=== PATIENT | male | born 1955 | race Caucasian/White ===

== ENCOUNTER 2024-07-07 13:23 | Outpatient (REF) | payer OTHER, SELFPAY ==
--- NOTE | ~2024-07-07 | XR_ITS ---
EXAMINATION: XR HIP, RIGHT Pelvis x-ray CLINICAL INFORMATION: Right hip pain and pelvic pain. COMPARISON: None available. TECHNIQUE: Two views of the right hip. single view of the pelvis FINDINGS: Right hip and pelvis: No fracture. Alignment is anatomic. Hip joint space is maintained. Soft tissues are unremarkable. Mild spondylosis of the partially visualized lumbar sacral spine. XR/XR hip RT w PEL1V IMPRESSION: 1. Right hip and pelvis: No fracture or dislocation. 2. Mild spondylosis of the partially visualized lumbar sacral spine. Electronically signed by: Mandeep Silva MD 07/07/2024 04:29 PM EDT
== END 2024-07-07 13:24 | disposition home or self-care (01) ==
LOC: HO.XRAY 13:23
PROVIDERS: PCP Internal Medicine Medical Oncology; Visit Provider Internal Medicine Medical Oncology
DX: M25.551 Pain in right hip (principal); R10.2 Pelvic and perineal pain
CPT/HCPCS: 73502

== ENCOUNTER 2024-10-16 15:26 | Outpatient (REF) | payer OTHER, SELFPAY ==
--- NOTE | ~2024-10-16 | XR_ITS ---
EXAMINATION: XR CHEST CLINICAL INFORMATION: COUGH COMPARISON: None available. TECHNIQUE: 2 views of the chest were obtained. FINDINGS: No significant abnormality is noted involving the heart, lungs, mediastinum, bony thorax or soft tissues. XR/XR chest 2V IMPRESSION: Unremarkable examination. Electronically signed by: Renetta Watkins MD 10/16/2024 05:00 PM [facility]
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
--- OUTSIDE RECORDS SUMMARY | 2024-10-18 16:23 | XMS_ITS ---
Author Organization Bruno Ho III, MD Address [address] [facility] [place] [address] Care Team Providers Care Tin Whiz Machine Operator Name Role Phone Bruno Ho Primary Care Provider REASON FOR VISIT Rx sent to wrong Pharmacy Social History Sex Assigned At : Social History Observation Description Sex Assigned At Male Encounters Encounter Location Date Provider Diagnosis Bruno Ho III, MD [address] [place] [address] [place] [address] 10/17/2024 Bruno Ho Plan Of Treatment Next Appt Details Provider Name:Bruno Ho, 11/10/2024 10:00:00 AM, [address] [place] [address] [place], [address], Provider Name:Bruno Ho, 01/02/2025 09:15:00 AM, [address] [place] [address] [place], [address], Progress Notes * Fred LYNN SrDOB:12/1954 (69 yo M)Acc No.[id number]:10/17/2024 Patient:?Fred LYNN :1955???Age:69 Y???Sex:Male Address:[address] [place] [address] * * Date:?
--- OUTSIDE RECORDS SUMMARY | 2024-10-18 16:23 | XMS_ITS ---
Author Organization Bruno Ho III, MD Address [address] [place] [address] [place] [address] Care Team Providers Care Lean Process Deployment Consultant Name Role Phone Bruno Ho Primary Care Provider Medications Medication SIG (Take, Route, Frequency, Duration) Notes Start Date End Date Status guaiFENesin-Codeine 100-10 MG/5ML 10 mL as needed Orally every 4 hrs for 7 days 10/17/2024 10/31/2024 Active Social History Sex Assigned At : Social History Observation Description Sex Assigned At Male Encounters Encounter Location Date Provider Diagnosis Bruno Ho III, MD [address] [place] [address] [place] [address] 10/17/2024 Bruno Ho Plan Of Treatment Medication Medication Name Sig Start Date Stop Date Notes guaiFENesin-Codeine 100-10 MG/5ML 10 mL as needed Orally every 4 hrs for 7 days 10/17/2024 10/31/2024 Next Appt Details Provider Name:Bruno Ho, 11/10/2024 10:00:00 AM, [address] [place] [address] [place], [address], Provider Name:Bruno Ho, 01/02/2025 09:15:00 AM, [address] [place] [address] [place], [address], Progress Notes * Fred LYNN SrDOB:12/1954 (69 yo M)Acc No.[id number]:10/17/2024 Patient:?Fred LYNN :1955???Age:69 Y???Sex:Male Address:[address] [place] [phone] * Refills? Start guaiFENesin-Codeine Solution, 100-10 MG/5ML, Orally, 420 ML, 10 mL as needed, every 4 hrs, 7 days, Refills=1 * true * Date:? Generated for Dionte canales/Rob/eTransmitting on:?10/18/2024 04:22 PM EST
--- OUTSIDE RECORDS SUMMARY | 2024-10-18 16:23 | XMS_ITS ---
Author Organization Bruno Ho III, MD Address [address] [place] [address] Care Team Providers Care Pharmaceutical Sales Representative Name Role Phone Bruno Ho Primary Care Provider REASON FOR VISIT Needs call back from Social History Sex Assigned At : Social History Observation Description Sex Assigned At Male Encounters Encounter Location Date Provider Diagnosis Bruno Ho III, MD [address] [place] [address] [place] [address] 10/18/2024 Bruno Ho Plan Of Treatment Next Appt Details Provider Name:Bruno Ho, 11/10/2024 10:00:00 AM, [address] [place] [address] [place], [address], Provider Name:Bruno Ho, 01/02/2025 09:15:00 AM, [address] [place] [address] [place], [address], Progress Notes * Fred LYNN SrDOB:12/1954 (69 yo M)Acc No.[id number]:10/18/2024 Patient:?Fred LYNN r :1955???Age:69 Y???Sex:Male Address:[address] [place], [place] [address] [address] * true * Date:? Generated for Printi ng/Faxing/eTransmitting on:?10/18/2024 04:22 PM EST
--- OUTSIDE RECORDS SUMMARY | 2024-10-18 16:23 | XMS_ITS | Continuity of Care Document ---
Author Organization [facility], Telehealth Address [address] [place] [address] Care Team Providers Care Social Sciences Lecturer Name Role Phone KAYLI ERIN Primary Care Provider Assessment No assessment recorded. Plan of Treatment Reminders Order Date Submit Date Provider Last Modified By Organization Details Last Modified Time Details Appointments None recorded. Lab None recorded. Referral None recorded. Procedures None recorded. Surgeries orthopaedi c surgery (SURG) 2023 024 [email or web address] Not available 4 15:24:08 Imaging None recorded. Medication Orders None recorded. Patient TargetsNo targets recorded. Patient InstructionsNo instructions recorded. Reason for Referral None Reported. Procedures Surgical History Date Name Laterality Status Provider Name and Address Organization Details Recorded Time 1 Orthopaedic Surgery completed Erum Montano [facility] 12/11/2021 11:38:28 5 Orthopaedic Surgery completed Adina Peralta [facility] 04/23/2017 12:11:17 2 Orthopaedic Surgery completed Adina [facility] 04/23/2017 12:11:27 Imaging Results None recorded. Procedure Notes None recorded. Medical Equipment None Reported. Allergies Allergen ID Allergen Name Allergen Category Reaction Reaction Severity Criticality Documentation Date Start Date Code Code System Note Provider Name and Address Organization Details Recorded Time 464197 bee pollen environme nt,medica tion Not available Not available Not available 04/23/2017 01056 7 RxNorm Adina del valle [facility] 7 12:10:40 Medications Name Sig Start Date Stop Date Status Note LastModified by Organization Details LastModified Time cyclobenza stephen 10 mg tablet TAKE 1 TABLET BY MOUTH THREE TIMES DAILY FOR 7 DAYS active Not Available Not Available No t Available atorvastat in 40 mg tablet TAKE 1 TABLET BY MOUTH EVERY DAY active Not Available Not Available No t Available ketoconazo le 2 % shampoo USE SHAMPOO NEEDED FOR SEBORRHE IC DREMATIT IS active Not Available Not Available No t Available Depo-Medro l 40 mg/mL suspension for injection Take 2 mg by injectio n route. 01/30 completed Not Available Not Available Not Available azithromyc in 250 mg tablet active Not Available Not Available Not Available hydrocodon e 5 mg-acetami nophen 325 mg tablet TAKE 2 TABLETS BY MOUTH EVERY 6 HOURS NEEDED FOR SEVERE PAIN. NOT TO EXCEED 8 TABLETS DAILY 01/30 completed Not Available Not Available Not Available fluorourac il 5 % topical cream APPLY TWICE DAILY TO AFFECTED SCALY AREAS ON FACE FOR A FEW WEEKS UNTIL RED AND CRUSTED 01/30 completed Not Available Not Available Not Available ciprofloxa dawn 500 mg tablet 04/09 completed Not Available Not Available Not Available sulfametho xazole 800 mg-trimeth oprim 160 mg tablet take 1 tablet by mouth twice a day 04/09 completed Not Available Not Available Not Available Kenalog 40 mg/mL suspension for injection Take 3 mL by injectio n route. 2023 active US Guided Not Available Not Available Not Available tamsulosin 0.4 mg capsule 10/12 completed Not Available Not Available Not Available dexamethas one 2 mg tablet TAKE 1 TABLET BY MOUTH EVERY 12 HOURS FOR 7 DAYS 01/30 completed Not Available Not Available Not Available pantoprazo le 40 mg tablet,del ayed release TAKE 1 TABLET BY MOUTH TWICE DAILY active Not Available Not Available No t Available hyoscyamin e 0.125 mg sublingual tablet 04/09 completed Not Available Not Available Not Available clobetasol 0.05 % topical foam APPLY ONCE TO TWICE DAILY TO SCALP FOR 1-2 WEEKS AT A TIME FOR FLARES. DO NOT USE ON FACE OR SKIN FOLDS active Not Available Not Available No t Available epinephrin e 0.3 mg/0.3 mL injection, auto-injec tor INJECT 1 PEN IN THE MUSCLE ONE TIME DIRECTED active Not Available Not Available No t Available methylpred nisolone 4 mg tablets in a dose pack FOLLOW PACKAGE DIRECTIO NS 01/30 completed Not Available Not Available Not Available fluocinolo ne 0.01 % scalp oil and shower cap APPLY TO SCALP AND LEAVE OVERNIGH T. CAN USE TWICE PER WEEK NEEDED 01/30 completed Not Available Not Available Not Available Vitamin C active Not Available Not Tiffany ilable Not Available GaviLyte-G 236 gram-22.74 gram-6.74 gram-5.86 gram oral solution 02/16 completed Not Available Not Available Not Available Shingrix (PF) 50 mcg/0.5 mL intramuscu lar suspension , kit 04/09 completed Not Available Not Available Not Available Afluria Quad (PF) 60 mcg (15 mcg x 4)/0.5 mL IM syringe inject 0.5 millilit er intramus cularly 04/09 completed Not Available Not Available Not Available Afluria Qd 2018- (36 mos up)(PF)60 mcg (15 mcg x4)/0.5 mL IM syringe inject 0.5 millilit ers intramus cularly 04/09 completed Not Available Not Available Not Available Paxlovid 300 mg (150 mg x 2)-100 mg tablets in a dose pack TK 2 NIRMATRE LVIR TS AND 1 RITONAVI R T TOGETHER PO FOR 5 DAYS 01/30 completed Not Available Not Available Not Available Vitals None Recorded Social History Question Answer Notes LastModified by Organizat ion Details LastModified Time Tobacco Smoking Status Never Smoker Adina del valle [place] - [facility] 04/23/2017 12:11:42 What Is Your Level Of Alcohol Consumption? Moderate Information not available 04/10/2021 Auto Related Injury? No [email or web address] Information not available 04/23/2017 What Is Your Level Of Caffeine Consumption? Occasional Information not available 04/10/2021 Do You Or Have You Ever Used E-cigarettes Or Vape? 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 Yes B/l Shoulders Information not available 04/23/2017 What Was The Date Of Your Most Recent Tobacco Screening? 04/27/2019 Information not available 04/10/2021 Do You Or Have You Ever Used Smokeless Tobacco? Never Used Smokeless Tobacco Information not available 04/10/2021 What Types Of Sporting Activities Do You Participate In? Hockey, Gardening, [employer] Information not available 04/10/2021 Work Related Injury? No Information not available 04/23/2017 Sex: Unknown Functional Status Question Answer Note LastModified by Organization D etails LastModified Time What is your exercise level? Moderate [email or web address] Information not available 04/23/2017 Mental Status None recorded. Family History Relationship Description Onset Age of this Age Resolved Age Notes LastModified by Organization Details LastModified Time Father No current problems or disability [email or web address] Not available 04/23 12:16:02 Mother No current problems or disability [email or web address] Not available 04/23 12:16:02 Medical History Condition Response Blood Clots / Phlebitis N HIV or AIDS N Heart Problems N High Blood Pressure N Depression or Anxiety N Irregular Heartbeat N MRSA N Any Other Significant Medical Issues N Emphysema / Chronic Bronchitis N Reaction to General/Local Anesthesia N Weight Gain / Loss N Hepatitis / Jaundice N Kidney / Bladder Infections N Diabetes N Bleeding Disorder N Hearing Loss N Angina, Heart Failure or Attack N Night Sweats N Seizures / Epilepsy N Osteoarthritis / Rheumatoid arthritis / Other N Cancer N Stroke N Chemical Dependency / Alcoholism N Ulcer / Stomach Bleeding / Indigestion N Visual Loss or Glaucoma N Thyroid Disorder N Psoriasis / Skin Rash N Heart Disease N Pulmonary Embolism N Asthma / Shortness of Breath / Sleep Dice Spotter ea (please specify) N Immunizations Vaccine Type Date Status Note Provider Nam e and Address Organization Details Recorded Time SARS-COV-2 (COVID-19) vaccine, UNSPECIFIED 12/19/2020 completed Erum del valle [facility] 04/10/2021 07:30:48 SARS-COV-2 (COVID-19) vaccine, UNSPECIFIED 11/21/2020 completed Erum del valle [facility] 04/10/2021 07:30:57 Past Encounters Encounter ID Performer Location Encounter Start Date Encounter Closed Date Diagnosis/Indication Diagnosis SNOMED-CT Code Diagnosis ICD10 Code [id number] YONAS JIMÉNEZ MD [address] [address] 10/17/2024 12:11:01 10/17/2024 12:36:51 Spontaneous rupture of extensor tendons 161322784 M66.222 Bursitis o f left shoulder 3149775563 56556 M75.52 Bone spur of left shoulder 9813839113 52863 M25.712 Health Concerns Section Related Observation LastModified by Organization Detai ls LastModified Time None Recorded Concern Status LastModified by Organization Details LastModified Time None Recorded Payers Encounter Date Sequence Insurance Name Policy Number Policy Christiansen Covered Member ID Chrsitiansen Member ID Guarantor Name 10/17/2024 1 [facility] [employer] [facility] (PPO) [id number] Sandra Lynn [id number] Fred Lynn Notes Date Note Type Note Provider Name and Address Organization Details Recorded Time 10/17/2024 text/html Fred comes in today via telehealth. This visit was conducted as a real time interactive TeleHealth audio & visual via [employer]. The patient was identified by name and date of and consented to this TeleHealth visit. The patient was at their home in [place] and I was at my [place] office. Participants included myself and the patient. This was done over the course of 10 minutes including record review. Followup of his shoulder. Continues to have difficulty with the shoulder reaching to the side and the overhead. He has done physical therapy and cortisone shot numerous times. At this point, he wants to move ahead with surgical intervention. His MRI shows bursitis, impingement, partial cuff tear and slight subluxation of the biceps, so the plan will be scope, extensive debridement, subacromial decompression, possible tenodesis. We went over the risks and benefits of surgery, we will scheduled in near future. This is a 10 minute, [id number] encounter. YONAS JIMÉNEZ MD [address] [place], [address], [facility] 10/18/2024 10:52:03
--- OUTSIDE RECORDS SUMMARY | 2024-10-18 16:23 | XMS_ITS | Data Portability ---
Author Organization [facility] Office Address [address], [address] [place] [address] Care Team Providers Care Ventilated Rib Fitter Name Role Phone ERIN MILAN Primary Care Provider [phone] Assessment Encounter Date Assessment Date Assessment LastModified by Organization Details LastModified Time 06/29/2024 06/29/2024 Fred is a 68-year-old male he has early degenerative changes in his shoulder. He is has short-term relief from cortisone which she wishes to proceed with again today however he is interested in discussing possible surgical intervention debridement for his shoulder. His last MRI was from 2021. We will likely want to repeat this prior to considering surgical intervention. He tolerated his injection well today and I will follow-up with him in 1 month's time to check in on how he did with his injection. We will repeat his MRI and have him follow-up at the end of August to discuss possible surgery with Dr. Strong. After discussion of the risks including, but not limited to infection, localized soreness and swelling, reaction to medications, the patient elected to proceed with a left subacromial and glenohumeral cortisone injection. Confirmed that the patient does not have history of prior adverse reactions, active infections, or relevant allergies. There was no erythema, or warmth, and the skin was clear. The skin was sterilized with alcohol & Betadine. [facility] Ul[facility]ound was used to ensure accuracy of placement of the injection. 1cc of Kenalog and 1cc of Lidocaine was injected into the subacromial space was visualized and confirmed on ultrasound. Direction was turned to the glenohumeral joint. Anesthesia was achieved subcutaneously with 2cc of 2% Lidocaine. [facility] Ultrasound was used to ensure accuracy of placement of the injection. After re-prepping with Betadine, A 22-gauge spinal needle was used inject 2cc of Kenalog and 2cc of Lidocaine under ultrasound guidance into the glenohumeral joint with sterile gel and a sterile probe. Injection was visualized and confirmed to be in the correct location on ultrasound. The injection was completed without complication and Band-Aids were applied. The patient tolerated the procedure well and was instructed to avoid strenuous activity for the next 24-48 hours and use ice, NSAIDs or Tylenol for pain as needed. The patient will call immediately with any signs of infection or allergic reaction. [email or web address] Not available 06/30/2024 11:26:51 08/08/2024 08/08/2024 This visit was conducted as a real time interactive audio/visual telehealth visit conducted via [employer] The patient was identified by name and date of and consented to this telehealth visit. The patient was at their home in [place] and I was at my [place] office. Participants of the telehealth visit included myself and the patient. The patient was last seen for an office visit on 06/29/24 This visit was done over the course of 20 minutes including record review. Unfortunately, only three weeks of relief from his last injection. We will repeat MRI imaging and have him follow-up with Dr. Strong to discuss possible surgical intervention. [email or web address] Not available 08/08/2024 10:45:44 09/05/2024 09/05/2024 After discussion of the risks including, but not limited to infection, localized soreness and swelling, reaction to medications, the patient elected to proceed with a left subacromial and glenohumeral cortisone injection. Confirmed that the patient does not have history of prior adverse reactions, active infections, or relevant allergies. There was no erythema, or warmth, and the skin was clear. The skin was sterilized with alcohol & Betadine. [facility] Ultrasound was used to ensure accuracy of placement of the injection. 1cc of Kenalog and 1cc of Lidocaine was injected into the subacromial space was visualized and confirmed on ultrasound. Direction was turned to the glenohumeral joint. Anesthesia was achieved subcutaneously with 2cc of 2% Lidocaine. [facility] Ultrasound was used to ensure accuracy of placement of the injection. After re-prepping with Betadine, A 22-gauge spinal needle was used inject 2cc of Kenalog and 2cc of Lidocaine under ultrasound guidance into the glenohumeral joint with sterile gel and a sterile probe. Injection was visualized and confirmed to be in the correct location on ultrasound. The injection was completed without complication and Band-Aids were applied. The patient tolerated the procedure well and was instructed to avoid strenuous activity for the next 24-48 hours and use ice, NSAIDs or Tylenol for pain as needed. The patient will call immediately with any signs of infection or allergic reaction. [email or web address] Not available 09/11/2024 10:08:41 Plan of Treatment Reminders Order Date Submit Date Provider Last Modified By Organization Details Last Modified Time Details Appointments None recorded. Lab None recorded. Referral None recorded. Procedures None recorded. Surgeries orthopaedi c surgery (SURG) 2023 [email or web address] Not available 15:24:08 Imaging MRI, shoulder, w/o contrast - Evaluate Rotator Cuff *PAS* Please contact patient and schedule. Thank you 2023 [facility] ([facility]), [address] [place], [address], 09:37:55 Medication Orders Kenalog 40 mg/mL suspension for injection 2023 024 [email or web address] [facility] #[id number], [address] [place], [place], [phone], 10:03:14 Kenalog 40 mg/mL suspension for injection 2023 024 [email or web address] [facility] #[id number], [address], [place], [id number], 08:35:55 Patient TargetsNo targets recorded. Patient InstructionsNo instructions recorded. Reason for Referral None Reported. Results Created Date Observation Date Name Description Value Unit Range Abnormal Flag Note LastModifiedBy Organization Detail LastModifiedTime 08/25/2008/24/2024 MRI, leeroy alston, w/o contr ast [facility] Access ion Number : [id number] Patien t Name: Fred Mera Record Number : [id number] Date of : 1954 Date of Exam: 2023 Referr kamila malin: Alvina Melendez [facility] [address] [place] [address] Exam: MR Should er (C-) CPT 60723 - Left Room Descri ption: [place] Siem Verio 3.0T SHOULD ER MRI LEFT CLINIC AL HISTOR Y: Pain. Rotato r cuff repair with subacr omial decomp ressio n and distal clavic le excisi on 2004 COMPAR OMI: 022 FINDIN GS: Stable postsu rgical change at the AC joint. Stable small subacr omial/ subdel toid bursit is. Subcor acoid bursit is is unchan ged. Supras pinatu s and infras pinatu s tendin opathy is unchan ged The teres minor tendon is intact . Subsca pulari s tendin opathy has increa sed Partia l tearin g and advanc ed tendin opathy within the intra- articu lar portio n of the long head of the biceps tendon has not change d signif icantl y since the previo us exam. IMPRES TEMITOPE: No eviden ce of full-t hickne ss rotato r cuff tear. No change in supras pinatu s and infras pinatu s tendin opathy . Subsca pulari s tendin opathy has increa sed. Partia l tearin g and advanc ed tendin opathy within the long head of the biceps tendon has not change d signif icantl y. Subacr omial/ subdel toid and subcor acoid bursit is have not change d signif icantl y. Electr onical ly Signed By: Cristo Roy MD [email or web address] [facility] ([facility]) [address], [place], [address], 08/25/2024 09:39:54 08/25/20 24 08/24/2024 MRI, leeroy alecia, w/o contr ast No observ ation record ed. [address] [place], [address], 08/25/2024 10:52:30 Result Notes None recorded. Procedures Surgical History Date Name Laterality Status Provider Name and Address Organization Details Recorded Time Orthopaedic Surgery completed Erum Pittscoleen [facility] 12/11/2021 11:38:28 5 Orthopaedic Surgery completed Adina Peralta [facility] 04/23/2017 12:11:17 2 Orthopaedic Surgery completed Adina Peralta [facility] 04/23/2017 12:11:27 Imaging Results Imaging Date Name Status LastModified by Organiz ation Details LastModified Time 08/24/2024 MRI, shoulder, w/o contrast completed [email or web address] [facility] ([facility]) [address] [place], [address], 08/25/2024 09:39:54 08/24/2024 MRI, shoulder, w/o contrast completed [address] [facility] [address] [place], [address], 08/25/2024 10:52:30 Procedure Notes None recorded. Medical Equipment None Reported. Allergies Allergen ID Allergen Name Allergen Category Reaction Reaction Severity Criticality Documentation Date Start Date Code Code System Note Provider Name and Address Organization Details Recorded Time 152502 bee pollen environme nt,medica tion Not available Not available Not available 04/23/2017 63940 7 RxNorm Adnia Peralta [facility] 7 12:10:40 Medications [...] Status Never Smoker Adina del valle MA [facility] 04/23/2017 12:11:42 What Is Your Level Of Alcohol Consumption? Moderate Information not available 04/10/2021 Auto Related Injury? No [email or web address] Information not available 04/23/2017 What Is Your Level Of Caffeine Consumption? Occasional Information not available 04/10/2021 Do You Or Have You Ever Used E-cigarettes Or Vape? 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 Yes B/l Shoulders [email or web address] Information not available 04/23/2017 What Was The Date Of Your Most Recent Tobacco Screening? 04/27/2019 Information not available 04/10/2021 Do You Or Have You Ever Used Smokeless Tobacco? Never Used Smokeless Tobacco Information not available 04/10/2021 What Types Of Sporting Activities Do You Participate In? Hockey, Gardening, Pel[employer] Information not available 04/10/2021 Work Related Injury? No [email or web address] Information not available 04/23/2017 Sex: Unknown Functional Status Question Answer Note LastModified by Organization D etails LastModified Time What is your exercise level? Moderate [email or web address] Information not available 04/23/2017 Mental Status None recorded. Family History Relationship Description Onset Age of this Age Resolved Age Notes LastModified by Organization Details LastModified Time Father No current problems or disability [email or web address] Not available 04/23 12:16:02 Mother No current problems or disability [email or web address] Not available 04/23 12:16:02 Medical History Condition Response Blood Clots / Phlebitis N Heart Problems N HIV or AIDS N Depression or Anxiety N High Blood Pressure N Irregular Heartbeat N MRSA N Emphysema / Chronic Bronchitis N Any Other Significant Medical Issues N Reaction to General/Local Anesthesia N Weight [...] Indigestion N Visual Loss or Glaucoma N Psoriasis / Skin Rash N Thyroid Disorder N Heart Disease N Asthma / Shortness of Breath / Sleep Hair Spring Cutter ea (please specify) N Pulmonary Embolism N Immunizations Vaccine Type Date Status Note Provider Nam e and Address Organization Details Recorded Time SARS-COV-2 (COVID-19) vaccine, UNSPECIFIED 12/19/2020 completed Erum del valle [facility] 04/10/2021 07:30:48 SARS-COV-2 (COVID-19) vaccine, UNSPECIFIED 11/21/2020 completed Erum del valle [facility] 04/10/2021 07:30:57 Past Encounters Encounter ID Performer Location Encounter Start Date Encounter Closed Date Diagnosis/Indication Diagnosis SNOMED-CT Code Diagnosis ICD10 Code [id number] JOANNA CROSS [facility] [address] [place] [address] 1 04/23/2017 11:38:43 04/23/2017 12:39:00 Shoulder pain 29412995 M25.512 [id number] YONAS STRONG MD [facility] [address] [place] [address] 1 02/16/2019 11:06:50 02/16/2019 12:22:07 Bursitis of left shoulder 0350985358 49142 M75.52 Strain of rotator cuff capsule 90589025 S46.012A [id number] YONAS STRONG MD [facility] [address] [place] [address] 1 04/27/2019 11:27:31 04/27/2019 11:50:49 Bursitis of left shoulder 5758861364 60825 M75.52 Osteophyte of bone 54353 88332 16172 M25.712 [id number] YONAS STRONG MD [facility] [address] [place] [address] 1 10/12/2019 10:50:09 10/12/2019 11:21:50 Bursitis of left shoulder 3879606400 58793 M75.52 [id number] JOANNA CROSS [address] [address] 04/10/2021 07:15:17 04/10/2021 08:05:39 Bursitis of left shoulder 2065763989 85898 M75.52 Impingemen t syndrome of left shoulder region 0871014892 85077 M75.42 Pain of le ft shoulder joint 4710489057 0741823 M25.512 [id number] JOANNA CROSS [address] [address] 04/22/2021 07:35:55 04/28/2021 10:49:45 Bursitis of left shoulder 0532783286 91533 M75.52 Pain of le ft shoulder joint 8243320884 8377924 M25.512 [id number] JOANNA CROSS [address] [address] 05/01/2021 12:44:40 05/01/2021 13:40:28 Pain of left shoulder joint 6975605191 2511088 M25.512 [id number] YONAS STRONG MD [facility] [address] [place] [address] 1 12/11/2021 11:19:45 12/11/2021 12:00:57 Adhesive capsulitis of left shoulder 4807734755 81398 M75.02 [id number] YONAS STRONG MD [address] [address] 09/15/2022 16:31:52 09/15/2022 18:10:11 Pain of right shoulder joint 7558175982 6614774 M25.915 [id number] YONAS STRONG MD [address] [address] 10/06/2022 12:02:06 10/06/2022 13:19:21 Osteoarthritis 461942632 M19.012 Adhesive c apsulitis of left shoulder 5512587019 68472 M75.02 [id number] JOANNA CROSS [address] [address] 1 01/31/2024 11:25:03 01/31/2024 15:32:48 Osteoarthritis of joint of left shoulder region 7345033854 66119 M19.012 Bursitis o f left shoulder 9408663864 24827 M75.52 Impingemen t syndrome of left shoulder region 4035758548 04097 M75.42 Pain of le ft shoulder joint 4086730172 1072984 M25.512 Rupture of rotator cuff of left shoulder 9128676080 7992334 M75.967 [id number] JOANNA HUERTAS [address] [address] 06/29/2024 10:51:46 06/29/2024 12:45:37 Partial thickness rotator cuff tear 297763470 M75.102 Osteoarthr itis of joint of left shoulder region 4269386645 02203 M19.012 Biceps tendinitis 274589 007 M75.22 [id number] JOANNA HUERTAS [place] [facility] [address] [address] 08/08/2024 09:46:26 08/08/2024 10:20:38 Biceps tendinitis 987400957 M75.22 Impingemen t syndrome of left shoulder region 8264377615 75515 M75.42 [id number] YONAS STRONG MD [address] [address] 08/31/2024 12:37:35 08/31/2024 13:12:23 Bursitis of left shoulder 0152109034 59807 M75.52 Bone spur of left shoulder 0966511182 66716 M25.712 Rupture of rotator cuff of left shoulder 3153390145 8902181 M75.457 [id number] JOANNA HUERTAS [address] [address] 09/05/2024 10:48:10 09/05/2024 13:10:00 Localized, primary osteoarthritis of the shoulder region 572224003 M19.012 Rupture of rotator cuff of left shoulder 2041779085 2005654 M75.303 [id number] YONAS STRONG MD [facility] [address] [place] [address] 10/17/2024 12:11:01 10/17/2024 12:36:51 Spontaneous rupture of extensor tendons 322512998 M66.222 Bursitis o f left shoulder 7217110347 81162 M75.52 Bone spur of left shoulder 7517365832 14937 M25.712 Health Concerns Section Related Observation LastModified by Organization Detai ls LastModified Time None Recorded Concern Status LastModified by Organization Details LastModified Time None Recorded Advance Directives Directive None Recorded Payers Encounter Date Sequence Insurance Name Policy Number Policy Christiansen Covered Member ID Christiansen Member ID Guarantor Name 06/29/2024 1 [employer] [id number] Sandra Gee Shane [id number] Fred Lynn 08/08/2024 1 [employer] - [employer] INDEMNITY PLAN (PPO) [id number] Sandra S Shane [id number] Fred Shane 08/31/2024 1 [employer] INDEMNITY PLAN (PPO) [id number] Sandra S Shane [id number] Fred Shane 09/05/2024 1 [employer] IN[employer]MNITY PLAN (PPO) [id number] Sandra Gee Shane [id number] Fred Shane 10/17/2024 1 [employer] IN[employer]MNITY [employer]AN (PPO) [id number] Sandra S Shane [id number] Fred Lynn Notes Date Note Type Note Provider Name and Address Organization Details Recorded Time 06/29/2024 text/html Fred is a 68-year-old male that presents today for follow-up for his left shoulder. He last met with Lamar in January who administered a cortisone injection. He was found to have some early degenerative changes. The patient reports good relief from the injection. They apparently did discuss possible surgical intervention however he wanted to hold off until the fall. He is hoping to repeat the cortisone injection to get him through the rest of the summer. Otherwise no changes in his shoulder. Of note the patient does have a prior MRI dated from 2021 JOANNA HUERTAS [address] [facility], [place], [address], [facility] 07/03/2024 11:07:58 08/08/2024 text/html Fred is a 68-year-old male that presents today for follow-up for his left shoulder. I administered a cortisone injection about a month ago. Unfortunately this provided only about 3 weeks of relief. At his last visit we discussed repeating his MRI to consider surgical intervention for his shoulder if the injection was not effective. His prior MRI from 2021 that shows bursitis and some partial tearing of the bicep tendon. JOANNA HUERTAS [address] [place], [address], [facility] 08/14/2024 10:29:58 08/31/2024 text/html Vikas reached via telehealth. This visit was conducted as a real time interactive TeleHealth audio & visual via [employer]. The patient was identified by name and date of and consented to this TeleHealth visit. The patient was at their home in [place] and I was at my [place] office. Participants of the telehealth visit included myself and the patient. This was done over the course of 10 minutes including record review. Followup of his shoulder. He had prior repair of the about 15-20 years ago, had done okay for many years, then had some recurrent discomfort. He had cortisone shot last April. Then the pain got fairly severe about 6 weeks ago. New MRI was obtained. It shows significant bursitis and partial cuff tear. Clinically, he gets up to about 100, but he is pretty uncomfortable. We discussed about options. He would like to try 1 more cortisone shot and then hold time for surgery in November, but does not improve. I think that is reasonable. I will set that up. A 10-minute [id number] encounter. YONAS STRONG MD [address] [place], [address], [facility] 09/01/2024 08:27:14 09/05/2024 text/html Fred is a 69-year-old male who presents today for left shoulder injection. He last met with Dr. Strong on 31 August. He discussed surgical intervention with Dr. Strong at this time. Dr. Strong felt that the patient first should proceed with 1 more an attempt with cortisone prior to considering surgery so he is here for that today. The patient still is interested in proceeding with surgery in November or at least holding a date. JOANNA HUERTAS [address] [place] [address], [phone], [facility] 09/11/2024 10:38:00 10/17/2024 text/html Fred comes in today via telehealth. This visit was conducted as a real time interactive TeleHealth audio & visual via [employer]. The patient was identified by name and date of and consented to this TeleHealth visit. The patient was at their home in [place] and I was at [place] office. Participants included myself and the patient. [...] near future. This is a 10 minute, 24[address] encounter. YONAS STRONG MD [address] [place], [address], [facility] 10/18/2024 10:52:03
--- OUTSIDE RECORDS SUMMARY | 2024-10-18 16:24 | XMS_ITS | Continuity of Care Document ---
Author Organization [facility] [place] Office Address [address] [place] [address] Care Team Providers Care Director Of Medicare Name Role Phone ERIN MILAN Primary Care Provider [phone] Assessment Encounter Date Assessment Date Assessment LastModified by Organization Details LastModified Time 09/05/2024 09/05/2024 After discussion of the risks [...] skin was sterilized with alcohol & Betadine. Excorda Ultrasound was used to ensure accuracy of placement of the injection. 1cc of Kenalog and 1cc of Lidocaine was injected into the subacromial space was visualized and confirmed on ultrasound. Direction was turned to the glenohumeral joint. Anesthesia was achieved subcutaneously with 2cc of 2% Lidocaine. Excorda Ultrasound was used to ensure accuracy of [...] Referral None recorded. Procedures None recorded. Surgeries None recorded. Imaging None recorded. Medication Orders Kenalog 40 mg/mL suspension for injection 2023 024 [id number] [address] [place], [place], [phone], 08:35:55 Patient TargetsNo targets recorded. Patient InstructionsNo instructions recorded. Reason for Referral None Reported. Results Created Date Observation Date Name Description Value Unit Range Abnormal Flag Note LastModifiedBy Organization Detail LastModifiedTime 08/25/2008/24/2024 MRI, leeroy alston, w/o contr ast [facility] Access ion Number : [id number] Vijay flaherty Name: Fred Mera Record Number : [id number] Date of : 1954 Date of Exam: 2023 Referr ing Physic dea: Alvina Melendez [facility] [address] [place] [address] [address] [facility] [place] [address] Exam: MR Should er (C-) CPT 98347 - Left Room Descri ption: [place] Siem Verio 3.0T SHOULD ER MRI LEFT [...] ly Signed By: Cristo Roy MD [email or web address] [facility] ([facility]) [address] [place], [address], 08/25/2024 09:39:54 08/25/20 24 08/24/2024 MRI, leeroy alston, w/o contr ast No observ ation record ed. [email or web address] [facility] [address] [place], [address], 08/25/2024 10:52:30 Result Notes None recorded. Procedures Surgical History Date Name Laterality Status Provider Name and Address Organization Details Recorded Time 1 Orthopaedic Surgery completed Erum Montano [facility] 12/11/2021 11:38:28 5 Orthopaedic Surgery completed Adina Peralta [facility] 04/23/2017 12:11:17 2 Orthopaedic Surgery completed Adina Peralta [facility] 04/23/2017 12:11:27 Imaging Results None recorded. Procedure Notes None recorded. Medical Equipment None Reported. Allergies Allergen ID Allergen Name Allergen Category Reaction Reaction Severity Criticality Documentation Date Start Date Code Code System Note Provider Name and Address Organization Details Recorded Time 852546 bee pollen environme nt,medica tion Not available Not available Not available 04/23/2017 18624 7 RxNorm Adina del valle [facility] 7 12:10:40 Medications [...] Never Smoker Adina del valle [place] - [facility] 04/23/2017 12:11:42 What Is Your Level Of Alcohol Consumption? Moderate Information not available 04/10/2021 Auto Related Injury? No [email or web address] Information not available 04/23/2017 What Is Your Level Of Caffeine Consumption? Occasional Information not available 04/10/2021 Do You Or Have You Ever Used E-cigarettes Or Vape? 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 Yes B/l Shoulders [email or web address] Information not available 04/23/2017 What Was The Date Of Your Most Recent Tobacco Screening? 04/27/2019 Information not available 04/10/2021 Do You Or Have You Ever Used Smokeless Tobacco? Never Used Smokeless Tobacco Information not available 04/10/2021 What Types Of Sporting Activities Do You Participate In? Hockey, Gardening, Peloton Information not available 04/10/2021 Work Related Injury? No [email or web address] Information not available 04/23/2017 Sex: Unknown Functional Status Question Answer Note LastModified by Organization D etails LastModified Time What is your exercise level? Moderate Information not available 04/23/2017 Mental Status None [...] Anxiety N Irregular Heartbeat N MRSA N Emphysema / Chronic Bronchitis N Any Other Significant Medical Issues N Reaction to General/Local Anesthesia N Hepatitis / Jaundice N Weight Gain / Loss N Kidney / Bladder Infections N Diabetes [...] Asthma / Shortness of Breath / Sleep Hammer Heater ea (please specify) N Pulmonary Embolism N Immunizations Vaccine Type Date Status Note Provider Nam e and Address Organization Details Recorded Time SARS-COV-2 (COVID-19) vaccine, UNSPECIFIED 12/19/2020 completed Erum del valle [place] [facility] 04/10/2021 07:30:48 SARS-COV-2 (COVID-19) vaccine, UNSPECIFIED 11/21/2020 arpita del valle [place] [facility] 04/10/2021 07:30:57 Past Encounters Encounter ID Performer Location Encounter Start Date Encounter Closed Date Diagnosis/Indication Diagnosis SNOMED-CT Code Diagnosis ICD10 Code [id number] JOANNA HUERTAS [place] [facility],[address] [address] 08/08/2024 09:46:26 08/08/2024 10:20:38 Biceps tendinitis 530783005 M75.22 Impingemen t syndrome of left shoulder region 5249875889 09544 M75.42 [id number] YONAS STRONG MD [address] [address] 08/31/2024 12:37:35 08/31/2024 13:12:23 Bursitis of left shoulder 3208706359 54893 M75.52 Bone spur of left shoulder 1002123121 51487 M25.712 Rupture of rotator cuff of left shoulder 1198349738 2865197 M75.936 [id number] JOANNA HUERTAS [facility] [address] [place] [address] 09/05/2024 10:48:10 09/05/2024 13:10:00 Localized, primary osteoarthritis of the shoulder region 343314988 M19.012 Rupture of rotator cuff of left shoulder 0820807257 0982015 M75.112 Health Concerns Section Related Observation LastModified by Organization Detai ls LastModified Time None Recorded Concern Status LastModified by Organization Details LastModified Time None Recorded Payers Encounter Date Sequence Insurance Name Policy Number Policy Christiansen Covered Member ID Christiansen Member ID Guarantor Name 09/05/2024 1 [facility] INDEMNITY PLAN (PPO) [id number] 7 Sandra Gerard Shane [id number] Fred Lynn Notes Date Note Type Note Provider Name and Address Organization Details Recorded Time 09/05/2024 text/html Fred is a 69-year-old male [...] at least holding a date. JOANNA HUERTAS [address] [place] [address], [phone], [facility] 09/11/2024 10:38:00
--- OUTSIDE RECORDS SUMMARY | 2024-10-18 16:24 | XMS_ITS | Continuity of Care Document ---
Author Organization [facility], Telehealth Address [address] [place] [address] Care Team Providers Care Dry Wall Sprayer Name Role Phone ERIN MILAN Primary Care Provider Assessment No assessment recorded. Plan of Treatment Reminders Order Date Submit Date Provider Last Modified By Organization Details Last Modified Time Details Appointments None record ed. Lab None record ed. Referral None record ed. Procedures None record ed. Surgeries None record ed. Imaging None record ed. Medication Orders None record ed. Patient TargetsNo targets recorded. Patient InstructionsNo instructions recorded. Reason for Referral None Reported. Results Created Date Observation Date Name Description Value Unit Range Abnormal Flag Note LastModifiedBy Organization Detail LastModifiedTime 08/25/20 24 08/24/2024 MRI, leeroy alston, w/o contr ast [facility] Access ion Number : [id number] Vijay flaherty Name: Fred Mera Medica l Record Number : [id number] Date of : 1954 Date of Exam: 2023 Referr ing Physic dea: Al Alvina [address] [place] [address] Exam: MR Should er (C-) CPT 30436 - Left Room Descri ption: [place] Siem Verio 3.0T SHOULD ER MRI LEFT [...] ly Signed By: Cristo Roy MD [email or web address] [facility] ([facility]) [address] [place], [address], 08/25/2024 09:39:54 08/25/20 24 08/24/2024 MRI, leeroy alecia, w/o contr ast No observ ation record ed. [email or web address] [facility] [address] [place], [address], 08/25/2024 10:52:30 Result Notes None recorded. Procedures Surgical History Date Name Laterality Status Provider Name and Address Organization Details Recorded Time 1 Orthopaedic Surgery completed Erum Montano [facility] 12/11/2021 11:38:28 5 Orthopaedic Surgery completed [facility] 04/23/2017 12:11:17 2 Orthopaedic Surgery completed [facility] 04/23/2017 12:11:27 Imaging Results None recorded. Procedure Notes None recorded. Medical Equipment None Reported. Allergies Allergen ID Allergen Name Allergen Category Reaction Reaction Severity Criticality Documentation Date Start Date Code Code System Note Provider Name and Address Organization Details Recorded Time 532707 bee pollen environme nt,medica tion Not available Not available Not available 04/23/2017 46890 7 RxNorm Adina Fabian [facility] 7 12:10:40 Medications [...] Never Smoker Adina del valle [place] - [facility] 04/23/2017 12:11:42 What Is Your Level Of Alcohol Consumption? Moderate Information not available 04/10/2021 Auto Related Injury? No [email or web address] Information not available 04/23/2017 What Is Your Level Of Caffeine Consumption? Occasional Information not available 04/10/2021 Do You Or Have You Ever Used E-cigarettes Or Vape? 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 Yes B/l Shoulders [email or web address] Information not available 04/23/2017 What Was The Date Of Your Most Recent Tobacco Screening? 04/27/2019 Information not available 04/10/2021 Do You Or Have You Ever Used Smokeless Tobacco? Never Used Smokeless Tobacco Information not available 04/10/2021 What Types Of Sporting Activities Do You Participate In? Hockey, Gardening, Peloton Information not available 04/10/2021 Work Related Injury? No [email or web address] Information not available 04/23/2017 Sex: Unknown Functional [...] available 04/23 12:16:02 Medical History Condition Response HIV or AIDS N High Blood Pressure N Irregular Heartbeat N MRSA N Any Other Significant Medical Issues N Weight Gain / Loss N Hearing Loss N Angina, Heart Failure or Attack N Night Sweats N Seizures / Epilepsy N Osteoarthritis / Rheumatoid arthritis / Other N Cancer N Stroke N Ulcer / Stomach Bleeding / Indigestion N Visual Loss or Glaucoma N Blood Clots / Phlebitis N Heart Problems N Depression or Anxiety N Emphysema / Chronic Bronchitis N Reaction to General/Local Anesthesia N Hepatitis / Jaundice N Kidney / Bladder Infections N Diabetes N Bleeding Disorder N Chemical Dependency / Alcoholism N Psoriasis / Skin Rash N Thyroid Disorder N Heart Disease N Asthma / Shortness of Breath / Sleep Merchandising Director ea (please specify) N Pulmonary Embolism N Immunizations Vaccine Type Date Status Note Provider Nam e and Address Organization Details Recorded Time SARS-COV-2 (COVID-19) vaccine, UNSPECIFIED 12/19/2020 arpita Montano [facility] 04/10/2021 07:30:48 SARS-COV-2 (COVID-19) vaccine, UNSPECIFIED 11/21/2020 arpita Danielson [facility] 04/10/2021 07:30:57 Past Encounters Encounter ID Performer Location Encounter Start Date Encounter Closed Date Diagnosis/Indication Diagnosis SNOMED-CT Code Diagnosis ICD10 Code [id number] JOANNA HUERTAS [facility] [address] [place] [address] 08/08/2024 09:46:26 08/08/2024 10:20:38 Biceps tendinitis 200470176 M75.22 Impingemen t syndrome of left shoulder region 4661295939 56467 M75.42 [id number] YONAS JIMÉNEZ MD [facility] [address] [place] [address] 08/31/2024 12:37:35 08/31/2024 13:12:23 Bursitis of left shoulder 0297851917 99271 M75.52 Bone spur of left shoulder 3084472315 04578 M25.712 Rupture of rotator cuff of left shoulder 0861259019 1932297 M75.102 Health Concerns Section Related Observation LastModified by Organization Detai ls LastModified Time None Recorded Concern Status LastModified by Organization Details LastModified Time None Recorded Payers Encounter Date Sequence Insurance Name Policy Number Policy Christiansen Covered Member ID Christiansen Member ID Guarantor Name 08/31/[address] [facility] INDEMNITY PLAN (PPO) [id number] 7 Sandra Lynn [id number] Fred Lynn Notes Date Note Type Note Provider Name and Address Organization Details Recorded Time 08/31/2024 text/html Vikas reached via telehealth. This visit was conducted as a real time interactive TeleHealth audio & visual via Lala. The patient was identified by name and date of and consented to this TeleHealth visit. The patient was at their home in [place] and I was at my [place] office. Participants of the telehealth visit included [...] I will set that up. A 10-minute [id number] encounter. YONAS JIMÉNEZ MD [address] [place] [address], [phone], [facility] 09/01/2024 08:27:14
== END 2024-10-16 15:27 | disposition home or self-care (01) ==
LOC: HO.XRAY 15:26
PROVIDERS: PCP Internal Medicine Medical Oncology; Visit Provider Internal Medicine Medical Oncology
DX: R05.9 Cough, unspecified (principal)
CPT/HCPCS: 71046

== ENCOUNTER → 2025-01-17 09:54 | Outpatient (REF) | payer OTHER, SELFPAY ==
--- NOTE | 2025-01-17 10:00 | ECG_ITS ---
Test Reason : PREOP Blood Pressure : */* mmHG Vent. Rate : 58 BPM Atrial Rate : 58 BPM P-R Int : 142 ms QRS Dur : 98 ms QT Int : 410 ms P-R-T Axes : 42 21 47 degrees QTcB Int : 402 ms Sinus bradycardia Otherwise normal ECG When compared with ECG of 19-Aug-2005 11:10, No significant change was found Referred By: Bruno Ho Electronically Signed By: RAAD CONDE
[2025-01-17 10:19] LABS: MANUAL DIFF FLAG NO
--- OUTSIDE RECORDS SUMMARY | 2025-01-17 11:09 | XMS_ITS ---
Author Organization Bruno Ho III, MD Address [address] [place] [address] Care Team Providers Care Tyre Builder Name Role Phone Bruno Ho Primary Care Provider [phone] Allergies Allergen (clinical drug ingredient) Drug/Non Drug [...] 01:37:43 PM > Referral and Progress note faxed Referral Priority Routine REASON FOR VISIT Annual Exam, cough, dizzy, [...] Status W/U Status Risk Notes Problem Neutropenia ([id number]) Neutropenia, unspecified (D70.9) Active confirmed A CBC has been ordered to be done within the next week. He has had no recent infections. Problem [id number] Primary osteoarthritis , right shoulder (M19.011) Active confirmed He is scheduled to have surgery on his right shoulder in [place] in January 2025. Vital Signs Temperature 97.6 degrees Fahrenheit 11/10/19 25 Blood pressure systolic 134 mm Hg 11/10/19 25 Blood pressure diastolic 70 mm Hg 025 Heart Rate 69, 70.0 /min 11/10/2024 Height 67 in 11/10/2024 Weight 154 lbs 11/10/2024 BMI 24.12 kg/m2 11/10/2024 Oximetry 99.0 % 11/10/2024 Encounters Encounter Location Date Provider Diagnosis Bruno Ho III, MD [address] [place] [address] [place] [address] 11/10/2024 Bruno Ho Erectile dysfunction N52.9 ; [...] The esophageal reflux is well controlled with bqpp-ovi-snoiehf medications. 11/10/2024 Peyronie's disease (ICD-10 - N48.6) This is being treated by the urologist. He says that has improved. 11/10/2024 Neutropenia, unspecified (ICD-10 - D70.9) A CBC has been ordered to be done within the next week. He has had no recent infections. 11/10/2024 Primary osteoarthritis, right shoulder (ICD-10 - M19.011) He is scheduled to have surgery on his right shoulder in [place] in January 2025. Plan Of Treatment Medication [...] surgery, Reason: Pre-op, Pre-operative check-up Provider Name:Bruno Ho, 11/13/2025 11:00:00 AM, [address] [place] [address] [address] [address], [place], [address], Progress Notes * Fred LYNN SrDOB:12/1954 (69 yo M)Acc No.[id number]:11/10/2024 Progress Notes Patient:?Fred LYNN Provider:?Bruno Ho MD :1955???Age:69 Y???Sex:Male Bryan e:11/10/2024 Address:[address] [place], [place] [id number] Subjective: * Chief Complaints: * ???Annual ExamCoughBrittanitaye quinterosuhailey, yelling, fighting in sleepShoulder 01/24 bone and joint, tear and scar left dshoulder, no more shots got rx for * HPI: ???Depression Screening:?PHQ-9?Little interest or pleasure in doing things?Nearly every day ?Feeling down, depressed, or hopeless?Nearly every day ?Trouble falling or staying asleep, or sleeping too much?Several days ?Feeling tired or having little energy?More than half the days ?Poor appetite or overeating?Nearly every day ?Feeling bad about yourself or that you are a failure, or have let yourself or your family down?Nearly every day ?Trouble concentrating on things, such as reading the newspaper or watching television?Nearly every day ?Moving or speaking so slowly that other people could have noticed; or the opposite, being so fidgety or restless that you have been moving around a lot more than usual?Nearly every day ?Thoughts that you would be better off or of hurting yourself in some way?Nearly every day (Consider Suicide Assessment Risk) ?Total Score?24 ?Interpretation?Severe Depression ???COVID-19 Screening:?Questions?Have you had any new onset fever, chills, cough, congestion, sore throat, shortness of breath, muscle aches??No ???SDOH Questions:?SDOH Questions?In the past year have you been worried about losing your housing??No ?In the past year have you or any family members you live with been unable to get any of the following when it was really needed? Check all that apply:?None ???:? The patient, a 69-year-old male, presented with [...] scheduled for the 24 of January. * ROS:?General/Constitutional:?pain?Sore from coughing, chronic right shoulder pain, otherwise only normal aches and pains.?Chills?denies.?Fatigue?admits.?Fever?denies.?Allergy/Immunology:?Admits?Cough,?is non-productive.?ENT:?Decreased hearing?denies.?Endocrine:?Admits?Dizziness.?Respiratory:?Cough?non-productive.?Cardiovascular:?Chest pain with exertion?denies.?Dyspnea on exertion?denies.?Shortness of breath?denies.?Gastrointestinal:?Constipation?occasional.?Decreased appetite?denies.?Diarrhea?denies.?Heartburn?denies.?Nausea?denies.?Rectal bleeding?denies.?Vomiting?denies.?Hematology:?bruising?denies.?petechiae?denies.?Swollen glands?none have been noted.?Genitourinary:?Frequent urination?once a night.?Musculoskeletal:?Muscle aches?denies.?Painful joints?denies.?Sciatica?denies.?Weakness?denies.?Skin:?Itching?denies.?Rash?denies.?Skin lesion(s)?denies.?Neurologic:?Difficulty speaking?denies.?Dizziness?denies.?Headache?denies.?Low back pain?denies.?Psychiatric:?Depressed mood?denies.? * Medical History:? * Surgical History:?rotator cu ff tear repair - left [id number] discectomy with anterior fusion houlder surgery scheduled for 24 of january. 01/2025 * Hospitalization/Major Diagno stic Procedure:?Chest pain 11/2020No history * Family History:?Father: aileen kothari 84 yrs, hypertension, diagnosed with HTN.?Mother: alive 80 yrs.?Siblings: alive.?Maternal Grand Mother: 70 yrs, type II diabetes, diagnosed with DM.?Spouse: alive.?3 brother(s) , 2 sister(s) . 1 son(s) - healthy. .? One sibling has been diagnosed with hypertension. * Social History:?Tobacco Use:?Tobacco Use/Smoking?Patient is a?former smoker ?How long has it been since you last smoked??> 10 years ?Additional Findings: Tobacco Non-User?Ex-cigarette smoker ?Tobacco Control (Standard)?Tobacco use:?Former smoker ?How long has it been since you last smoked??Greater than 10 years ?Additional Findings: Tobacco non-user?Ex-cigarette smoker ???Drugs/Alcohol:?Drugs?Have you used drugs other than those for medical reasons in the past 12 months??No ???Drug/Alcohol:?AUDIT-C (Standard)?Did you have a drink containing alcohol in the past year??Yes ?How often did you have six or more drinks on one occasion in the past year??4 or more times a week (4 points) ?How many drinks did you have on a typical day when you were drinking in the past year??1 or 2 drinks (0 point) ?How often did you have a drink containing alcohol in the past year??Never (0 point) ?Points?4 ?Interpretation?Positive ???He was born in [place]. 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 He is now with the [employer] department. * Medications:?TakingEpiPen 2- Shiv 0.3 MG/0.3ML Solution Auto-injector as directed Injection [...] reviewed and reconciled with the patient * Allergies:?Bee Stingno[Aller gies Verified] Objective: * Vitals:?Ht: 67, Wt:154, BMI: 24.12, BP:134/70, HR: 69,70.0, Temp:97.6, Oxygen sat %:99.0, Ht-cm: 170.18, Wt-k.85. * ???Past Orders: ???Imaging:XR chest 2V (Orde r Date - 10/16/2024) (Performed Date - 10/16/2024) [...] Negative Menstrating NR N/A NA * Examination: ???General Examination: ?GENERAL APPEARANCE:?pleasant, well nourished, well developed, in no acute distress, calm and relaxed, man.?HEAD:?atraumatic, normocephalic.?EYES:?eomi, perrla, anicteric, conjugate.?EARS:?normal.?NOSE:?septum intact.?ORAL CAVITY:?normal, unremarkable.?NECK/THYROID:?no jugular venous distention, no carotid bruit, thyroid normal.?LYMPH NODES:?no enlarged lymph nodes,spleen normal.?SKIN:?no suspicious lesions, anicteric.?HEART:?no clicks, gallops, murmurs, or rubs, regular rhythm, S1, S2 normal, no s3, or vascular bruits.?LUNGS:?clear to auscultation, no wheezes, rales, rhonchi, good air movement.?BREASTS:??no masses palpable bilaterally.?ABDOMEN:?bowel sounds normal, no ascites, no organomegaly, no mass.?RECTAL EXAM:?not examined.?MUSCULOSKELETAL:?extremities unremarkable, no clubbing, cyanosis or edema, [place] to elevation both shoulders, Right worse than left.?PERIPHERAL PULSES:?normal.?NEUROLOGIC:?alert and oriented, cranial nerves 2-12 grossly intact, deep tendon reflexes 2+ symmetrical, motor strength normal upper and lower extremities, sensory exam intact.?PSYCH:?alert, oriented.? : ???Eardrums:Normal, Prostate: Normal, Rectum: Normal, Shoulder: Small tear and a lot of scar tissue. ??? Assessment: * Assessment: 1.?Benign prostatic hyperpla jolanta with lower urinary tract symptoms - N40.1 (Primary)???Notes :His prostatism is stable with nocturia once a night. No change in his regimen was needed at this time. We discussed lifestyle modification as a means to control nocturia.???2.?Erectile dysfunction - N52.9???Notes :I have refilled his tadalafil.? He reports the perone's disease is stable.???3.?Former smoker - Z87.891???Notes :He is motivated not to smoke. We discussed strategies for maintenance of abstinence in times of stress.???4.?Hyperlipidemia - E78.5???Notes :A fasting lipid profile is pending. We will discuss results over the telephone when it is available.???5.?Gastro-esophageal reflux disease without esophagitis - K21.9???Notes :The esophageal reflux is well controlled with aord-jls-kzlomxj medications.???6.?Peyronie's disease - N48.6???Notes :This is being treated by the urologist. He says that has improved.???7.?Neutropenia, unspecified - D70.9???Notes :A CBC has been ordered to be done within the next week.? He has had no recent infections.???8.?Primary osteoarthritis, right shoulder - M19.011???Notes :He is scheduled to have surgery on his right shoulder in [place] in January 2025.??? Plan: * Treatment: 2.?Hyperlipidemia?LAB: PROFILE, FASTING (COMPREHENSIVE METABOLIC) ?LAB: TSH (THYROID STIMULATING HORMONE) ?LAB: CBC WITH AUTO DIFF ?LAB: Magnesium ?LAB: Lipid Panel ?LAB: PSA Free and Total ?LAB: Free T4 (Free Thyroxine) 3.?Others? Continue Atorvastatin Calcium Tablet, 40 MG, TAKE 1 TABLET BY MOUTH EVERY DAY;?Continue EpiPen 2-Shiv Solution Auto-injector, 0.3 MG/0.3ML, as directed, Injection, inject as needed for allergic reaction;?Continue Pantoprazole Sodium Tablet Delayed Release, 40 MG, TAKE 1 TABLET BY MOUTH TWICE DAILY;?Continue Cyclobenzaprine HCl Tablet, 10 MG, 1 tablet, Orally, three times a day;?Continue methylPREDNISolone Tablet Therapy Pack, 4 MG, Oral;?Start Tadalafil Tablet, 20 MG, 1 tablet as needed, Orally, Once a day, 12 days, 12 Tablet, Refills 11.? Referral To:EVARISTO GILLIS??Pulmonary Diseases ?Reason:Consult and Treat Needs Sleep Study Excessive Snoring * Labs:? * ?Lab: URINE DIP STICK (C ollection Date & Time - 11/10/2024) ? Value Reference Range ?SG 1.005 1.005 - 1.025 * ?pH 7.0 5.0 - 9.0 * ?ATIF Negative Negative - * ?NIT Negative Negative - * ?PRO Negative Negative - Trac e * ?GLU Negative Negative - * ?KET Negative Negative - * ?UBG 0.2 0.1 - 1.8 * ?ANAMARIA Negative 0.2 - 1.3 * ?BLD Negative Negative - * Procedure Codes:?69731 URINE -NO [id number] MEASURE BLOOD OXYGEN LEVEL * Preventive Medicine:? ??Counseling:?Smoking/Tobacco Use?Patient counseled on the dangers of tobacco use and urged to quit.?11/10/2024 * Follow Up:?As Scheduled, Bef ore the surgery (Reason: Pre-op, Pre-operative check-up) * Images: * Sign off status: Completed true * Provider:?Bruno Ho MD Date:?01/2025 Generated for Dionte canales/Rob/eTransmitting on:?01/17/2025 11:08 AM EDT History and Physical Notes * HPI [...] unremark able, no clubbing, cyanosis or edema, [place] to elevation both shoulders, Right worse than left LYMPH NODES: no enlarged lymph no johnny,spleen normal RECTAL EXAM: not examined PSYCH: alert, oriented ORAL CAVITY: normal, unremarkable Consultation Request Notes Referral Date Referring Provider Referred Provider Not hailey 11/10/2024 Bruno Ho MIGUEL Consult a nd Treat Needs Sleep Study Excessive Snoring
--- OUTSIDE RECORDS SUMMARY | 2025-01-17 11:09 | XMS_ITS | Data Portability ---
Author Organization [place] - [facility], [facility] [place] Office Address [address] [place] [address] Care Team Providers Care Gasket Inspector Name Role Phone ERIN MILAN Primary Care Provider [phone] Assessment Encounter Date Assessment Date Assessment LastModified by Organization Details LastModified Time 08/08/2024 08/08/2024 This visit was conducted as a real time interactive audio/visual telehealth visit conducted via [employer] The patient was identified by name and date of and consented to this telehealth visit. The patient was at their home in [place] and I was at my [place] office. Participants of the telehealth visit included [...] skin was sterilized with alcohol & Betadine. YEVVO Ultrasound was used to ensure accuracy of placement of the injection. 1cc of Kenalog and 1cc of Lidocaine was injected into the subacromial space was visualized and confirmed on ultrasound. Direction was turned to the glenohumeral joint. Anesthesia was achieved subcutaneously with 2cc of 2% Lidocaine. YEVVO Ultrasound was used to ensure accuracy of [...] Organization Details Last Modified Time Details Appointments 30 Surgery 2024 08:00A Neo STRONG MD Not available Not available Not available Salon Shampoo Assistant 30 2024 08:00A JOANNA SANTOS Not available Not available Not available Post-Oper ative F/U 15 2024 10:30A JOANNA SANTOS Not available Not available Not available Post-Oper ative F/U 15 2024 11:00A Neo STRONG MD Not available Not available Not available Lab None recorded. Referral None recorded. Procedures None recorded. Surgeries orthopaed ic surgery (SURG) [address] [facility] [address] [place] [address], [address], 12/27/2024 20:20:11 Imaging MRI, shoulder, w/o contrast - Evaluate Rotator Cuff *PAS* Please contact patient and schedule. Thank you 2023 024 [facility] ([facility]), [address], [place], [address], 08/25/2024 09:37:55 Medication Orders Kenalog 40 mg/mL suspensio n for injection 2024 025 [id number], [address] [place], [place], [phone], 12/01/2024 11:29:01 Kenalog 40 mg/mL suspensio n for injection 2023 024 [email or web address] [id number], [address] [place], [place], [phone], 09/07/2024 08:35:55 Patient TargetsNo targets recorded. Patient InstructionsNo instructions recorded. Reason for Referral None Reported. Results Created Date Observation Date Name Description Value Unit Range Abnormal Flag Note LastModifiedBy Organization Detail LastModifiedTime 08/25/2008/24/2024 MRI, leeroy alston, w/o contr ast [facility] Access ion Number : [id number] Name: Fred Mera l Record Number : [id number] Date of : 1954 Date of Exam: 2023 Referr ing Physic dea: Alvina Melendez [facility] [address] [place] [address] [address] [place] [address] Exam: MR Should er (C-) CPT 99790 - Left Room Descri ption: [place] Siem Verio 3.0T SHOULD ER MRI LEFT [...] ly Signed By: Cristo Roy MD [email or web address] [facility] ([facility]) [address], [place], [address], 08/25/2024 09:39:54 08/25/2008/24/2024 MRI, shoul alecia, w/o contr ast No observ ation record ed. [address] [place], [address], 08/25/2024 10:52:30 Result Notes None recorded. Procedures Surgical History Date Name Laterality Status Provider Name and Address Organization Details Recorded Time 1 Orthopaedic Surgery completed Erum Montano [facility] 12/11/2021 11:38:28 5 Orthopaedic Surgery completed Adina Peralta [facility] 04/23/2017 12:11:17 2 Orthopaedic Surgery completed [facility] 04/23/2017 12:11:27 Imaging Results Imaging Date Name Status LastModified by Organiz ation Details LastModified Time 08/24/2024 MRI, shoulder, w[facility]o contrast [email or web address] ([facility]) [address], [place], [address], 08/25/2024 09:39:54 08/24/2024 MRI, shoulder, w/o contrast completed [address] [place], [address], 08/25/2024 10:52:30 Procedure Notes None recorded. Medical Equipment None Reported. Allergies Allergen ID Allergen Name Allergen Category Reaction Reaction Severity Criticality Documentation Date Start Date Code Code System Note Provider Name and Address Organization Details Recorded Time [id number] bee pollen environme nt,medica tion Not available Not available Not available 04/23/2017 49636 7 RxNorm Adina del valle [place] - [facility] 7 12:10:40 Medications Name Sig Start Date Stop Date Status Note LastModified by Organization Details LastModified Time cyclobenzap rine 10 mg tablet TAKE 1 TABLET BY MOUTH THREE TIMES DAILY FOR 7 DAYS active Not Available Not Available No t Available atorvastati n 40 mg tablet TAKE 1 TABLET BY MOUTH EVERY DAY active Not Available Not Available No t Available ketoconazol e 2 % shampoo USE SHAMPOO NEEDED FOR SEBORRHEI C DREMATITI S active Not Available Not Available No t Available Depo-Medrol 40 mg/mL suspension for injection Take 2 mg by injection route. 01/30 completed Not Available Not Available Not Available azithromyci n 250 mg tablet active Not Available Not Available Not Available hydrocodone 5 mg-acetamin ophen 325 mg tablet TAKE 2 TABLETS BY MOUTH EVERY 6 HOURS NEEDED FOR SEVERE PAIN. NOT TO EXCEED 8 TABLETS DAILY 01/30 completed Not Available Not Available Not Available fluorouraci l 5 % topical cream APPLY TWICE DAILY TO AFFECTED SCALY AREAS ON FACE FOR A FEW WEEKS UNTIL RED AND CRUSTED 01/30 completed Not Available Not Available Not Available ciprofloxac in 500 mg tablet 04/09 completed Not Available Not Available Not Available sulfamethox azole 800 mg-trimetho prim 160 mg tablet take 1 tablet by mouth twice a day 04/09 completed Not Available Not Available Not Available Kenalog 40 mg/mL suspension for injection Take 2 mL by injection route. 2024 active W/ US Not Available Not Available Not Avai lable tamsulosin 0.4 mg capsule 10/12 completed Not Available Not Available Not Available dexamethaso ne 2 mg tablet TAKE 1 TABLET BY MOUTH EVERY 12 HOURS FOR 7 DAYS 01/30 completed Not Available Not Available Not Available pantoprazol e 40 mg tablet,riley yed release TAKE 1 TABLET BY MOUTH TWICE DAILY active Not Available Not Available No t Available hyoscyamine 0.125 mg sublingual tablet 04/09 completed Not Available Not Available Not Available clobetasol 0.05 % topical foam APPLY ONCE TO TWICE DAILY TO SCALP FOR 1-2 WEEKS AT A TIME FOR FLARES. DO NOT USE ON FACE OR SKIN FOLDS active Not Available Not Available No t Available codeine 10 mg-guaifene sin 100 mg/5 mL oral liquid TAKE 10 ML BY MOUTH EVERY 4 HOURS FOR 7 DAYS NEEDED active Not Available Not Available No t Available epinephrine 0.3 mg/0.3 mL injection, auto-inject or INJECT 1 PEN IN THE MUSCLE ONE TIME DIRECTED active Not Available Not Available No t Available methylpredn isolone 4 mg tablets in a dose pack FOLLOW PACKAGE DIRECTION S active Not Available Not Available No t Available tadalafil 20 mg tablet TAKE 1 TABLET BY MOUTH DAILY FOR 12 DAYS NEEDED active Not Available Not Available No t Available fluocinolon e 0.01 % scalp oil and shower cap APPLY TO SCALP AND LEAVE OVERNIGHT . CAN USE TWICE PER WEEK NEEDED 01/30 completed Not Available Not Available Not Available Vitamin C active Not Available Not Tiffany ilable Not Available GaviLyte-G 236 gram-22.74 gram-6.74 gram-5.86 gram oral solution 02/16 completed Not Available Not Available Not Available Shingrix (PF) 50 mcg/0.5 mL intramuscul ar suspension, kit 04/09 completed Not Available Not Available Not Available Afluria Quad (PF) 60 mcg (15 mcg x 4)/0.5 mL IM syringe inject 0.5 millilite r intramusc ularly 04/09 completed Not Available Not Available Not Available Afluria Qd 2018- (36 mos up)(PF)60 mcg (15 mcg x4)/0.5 mL IM syringe inject 0.5 millilite rs intramusc ularly 04/09 completed Not Available Not Available Not Available Paxlovid 300 mg (150 mg x 2)-100 mg tablets in a dose pack TK 2 NIRMATREL VIR TS AND 1 RITONAVIR T TOGETHER PO FOR 5 DAYS 01/30 completed Not Available Not Available Not Available Vitals None Recorded Social History Question Answer Notes LastModified by Organizat ion Details LastModified Time Tobacco Smoking Status Never Smoker Adina del valle [place] - [facility] 04/23/2017 12:11:42 What Is Your Level Of Alcohol Consumption? Moderate Information not available 04/10/2021 Auto Related Injury? No Information not available 04/23/2017 What Is Your Level Of Caffeine Consumption? Occasional Information not available 04/10/2021 Do You Or Have You Ever Used E-cigarettes Or Vape? 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 Yes B/l Shoulders [email or web address] Information not available 04/23/2017 What Was The Date Of Your Most Recent Tobacco Screening? 04/27/2019 Information not available 04/10/2021 Do You Or Have You Ever Used Smokeless Tobacco? Never Used Smokeless Tobacco Information not available 04/10/2021 What Types Of Sporting Activities Do You Participate In? Hockey, Gardening, [employer] Information not available 04/10/2021 Work Related Injury? No [email or web address] Information not available 04/23/2017 Sex: Unknown Functional Status Question Answer Note LastModified by Organization D etails LastModified Time What is your exercise level? Moderate [email or web address] Information not available 04/23/2017 Mental Status None [...] Asthma / Shortness of Breath / Sleep Cutter Grinder Operator ea (please specify) N Pulmonary Embolism N Immunizations Vaccine Type Date Status Note Provider Nam e and Address Organization Details Recorded Time SARS-COV-2 (COVID-19) vaccine, UNSPECIFIED 12/19/2020 completed Erum del valle [facility] 04/10/2021 07:30:48 SARS-COV-2 (COVID-19) vaccine, UNSPECIFIED 11/21/2020 completed Erum del valle [facility] 04/10/2021 07:30:57 Past Encounters Encounter ID Performer Location Encounter Start Date Encounter Closed Date Diagnosis/Indication Diagnosis SNOMED-CT Code Diagnosis ICD10 Code Diagnosis Note [id number] JOANNA CROSS [address] [address] 04/23/2017 11:38:43 04/23/2017 12:39:00 Shoulder pain 31962461 M25.512 [id number] YONAS STRONG MD [facility] [address] [place] [address] 02/16/2019 11:06:50 02/16/2019 12:22:07 Bursitis of left shoulder 0117281446 21149 M75.52 Strain of rotator cuff capsule 19873890 S46.012A [id number] YONAS STRONG MD [address] [address] 04/27/2019 11:27:31 04/27/2019 11:50:49 Bursitis of left shoulder 0336397659 72337 M75.52 Osteophyte of bone 52563 74141 42767 M25.712 [id number] YONAS STRONG MD [facility] [address] [place] [address] 10/12/2019 10:50:09 10/12/2019 11:21:50 Bursitis of left shoulder 2712799914 38840 M75.52 [id number] JOANNA CROSS [facility] [address] [place] [address] 04/10/2021 07:15:17 04/10/2021 08:05:39 Bursitis of left shoulder 2598674580 21436 M75.52 Impingemen t syndrome of left shoulder region 8734453331 35551 M75.42 Pain of le ft shoulder joint 5922283267 7360491 M25.512 [id number] JOANNA CROSS [address] [address] 04/22/2021 07:35:55 04/28/2021 10:49:45 Bursitis of left shoulder 2302045806 26063 M75.52 Pain of le ft shoulder joint 5991482290 0032706 M25.512 [id number] JOANNA CROSS [facility] [address] [place] [address] 05/01/2021 12:44:40 05/01/2021 13:40:28 Pain of left shoulder joint 3850217154 1439594 M25.512 [id number] YONAS STRONG MD [address] [address] 12/11/2021 11:19:45 12/11/2021 12:00:57 Adhesive capsulitis of left shoulder 4974225994 93088 M75.02 [id number] YONAS STRONG MD [address] [address] 09/15/2022 16:31:52 09/15/2022 18:10:11 Pain of right shoulder joint 4134532732 1865164 M25.333 [id number] YONAS STRONG MD [address] [address] 10/06/2022 12:02:06 10/06/2022 13:19:21 Osteoarthritis 416467645 M19.012 Adhesive c apsulitis of left shoulder 1519905648 17625 M75.02 [id number] JOANNA CROSS [facility] [address] [place] [address] 01/31/2024 11:25:03 01/31/2024 15:32:48 Osteoarthritis of joint of left shoulder region 4870996796 68783 M19.012 Bursitis o f left shoulder 7835501008 30473 M75.52 Impingemen t syndrome of left shoulder region 9570259435 50775 M75.42 Pain of le ft shoulder joint 5207621282 7741685 M25.512 Rupture of rotator cuff of left shoulder 1660150839 6386643 M75.037 [id number] JOANNA HUERTAS [facility] [address] [place] [address] 06/29/2024 10:51:46 06/29/2024 12:45:37 Partial thickness rotator cuff tear 328519444 M75.102 Osteoarthr itis of joint of left shoulder region 8334158127 75330 M19.012 Biceps tendinitis 254404 007 M75.22 [id number] JOANNA HUERTAS [facility] [address] [address] 08/08/2024 09:46:26 08/08/2024 10:20:38 Biceps tendinitis 182074419 M75.22 Impingemen t syndrome of left shoulder region 5408539956 37620 M75.42 [id number] YONAS STRONG MD [facility] [address] 08/31/2024 12:37:35 08/31/2024 13:12:23 Bursitis of left shoulder 1030285999 04085 M75.52 Bone spur of left shoulder 3437535748 89474 M25.712 Rupture of rotator cuff of left shoulder 1728642241 7326750 M75.982 [id number] JOANNA HUERTAS [facility] [address] [place] [address] 09/05/2024 10:48:10 09/05/2024 13:10:00 Localized, primary osteoarthritis of the shoulder region 987514825 M19.012 Rupture of rotator cuff of left shoulder 9821446516 9752440 M75.649 [id number] Aretha Arango [facility] [address] 10/17/2024 12:11:01 10/17/2024 12:36:51 Spontaneous rupture of extensor tendons 725571275 M66.222 Bursitis o f left shoulder 4522091871 23549 M75.52 Bone spur of left shoulder 9371432019 68472 M25.210 [id number] JOANNA CROSS [facility] am Office [address] [address] 12/01/2024 08:04:28 12/01/2024 09:51:50 Shoulder pain 21155738 M25.511 Health Concerns Section Related Observation LastModified by Organization Detai ls LastModified Time None Recorded Concern Status LastModified by Organization Details LastModified Time None Recorded Advance Directives Directive None Recorded Payers Encounter Date Sequence Insurance Name Policy Number Policy Christiansen Covered Member ID Christiansen Member ID Guarantor Name 08/08/2024 1 [employer]AN (PPO) [id number] Sandra Gee Shane [id number] Fred Lynn 08/31/2024 1 [employer] IN[employer]ITY PLAN (PPO) [id number] Sandra Gee Shane [id number] Fred Lynn 09/05/2024 1 [employer] IN[employer]ITY PLAN (PPO) [id number] Sandra Gee Shane [id number] Fred Lynn 10/17/2024 1 [employer] IN[employer]MNITY PLAN (PPO) [id number] Sandra Gee Shane [id number] Fred Lynn 12/01/2024 1 [employer] IN[employer]ITY [employer]AN (PPO) [id number] Sandra Gee Shane [id number] Fred Lynn Notes Date Note Type Note Provider Name and Address Organization Details Recorded Time 08/08/2024 text/html Fred is a 68-year-old male [...] tearing of the bicep tendon. JOANNA HUERTAS [address] [place] [address], [place], [address], [facility] - [facility] 08/14/2024 10:29:58 08/31/2024 text/html Vikas reached via telehealth. This visit was conducted as a real time interactive TeleHealth audio & visual via [employer]. The patient was identified by name and date of and consented to this TeleHealth visit. The patient was at their home in [place] and I was at my [place] office. Participants of the telehealth visit included [...] I will set that up. A 10-minute 634[address] encounter. YONAS STRONG MD [address] [place] [address], [address], [facility] 09/01/2024 08:27:14 09/05/2024 text/html Fred is a [...] at least holding a date. JOANNA HUERTAS [address] [place], [address], [facility] 09/11/2024 10:38:00 10/17/2024 text/html Fred comes in today via telehealth. This visit was conducted as a real time interactive TeleHealth audio & visual via [employer]. The patient was identified by name and date of and consented to this TeleHealth visit. The patient was at their home in [place] and I was at my [place] office. Participants included myself and the patient. [...] near future. This is a 10 minute, [address] encounter. YONAS STRONG MD [address] [place], [address], [facility] 10/18/2024 10:52:03 12/01/2024 text/html Patient presents for left shoulder. He is having surgery in January 24, but his shoulder is painful and would like an injection to get him through to his surgery date. Informed him he cannot move his surgery sooner. He agreed. I confirmed that the patient does not have a history of prior adverse reactions, active infections, or relevant allergies. There was no erythema or warmth, and the skin was clear. After discussion of the risks including, but not limited to infection, localized soreness and swelling, reaction to medications, the patient consented to proceeding with the injection. Under sterile conditions with the use of alcohol and Betadine prep on the LEFT shoulder and ethyl chloride spray on the skin, I applied sterile ultrasound gel and utilized the YEVVO Ultrasound to ensure accurate needle placement. Topical anesthesia was achieved by use of ethyl chloride spray, followed by the placement of 2 cc of Kenalog, and 2 cc of 2% lidocaine into the glenohumeral joint and subacromial space without incident. Ultrasound images were scanned into the patient's chart. The injection was completed without complication and a Band-Aid was applied. The patient tolerated the procedure well and was instructed to avoid strenuous activity for the next 24-48 hours and use ice, NSAIDs, or Tylenol for pain as needed. JOANNA CROSS [address] [facility], [place], [address], [facility] 12/01/2024 15:08:38
--- OUTSIDE RECORDS SUMMARY | 2025-01-17 11:09 | XMS_ITS ---
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 01/02/2025 Hyperlipidemia (ICD-10 - E78.5) A [...] Up: 6 Weeks, Reason: ov Provider Name:Bruno Ho, 11/13/2025 11:00:00 AM, [address] [place] [address] DR, [place] [address], [place], [address], Progress Notes * Fred LYNN SrDOB:12/1954 (69 yo M)Acc No.[id number]:01/02/2025 Patient:?Fred LYNN r Provider:?Bruno Ho MD :1955???Age:69 Y???Sex:Male Bryan e:01/02/2025 Address:[address] [place], [place] [id number] Subjective: * Chief Complaints: * ???Medical clearance for Lef t shoulder surgery on 01/24/[address] Strong,Rupture of extensor tendonsRotator cuff tearBone spurs left shoulderSubluxation of biceps muscleBenign prostatic hypertrophyCervical radiculopathy * HPI: ???COVID-19 Screening:?He is going to have a day stay orthopedic surgery on his left shoulder on January 24, 2025 in the [facility].? He is here today for medical clearance.? He reports no difficulty breathing and has had no exertional chest pain.? He has no history of bleeding.? He has undergone surgery on his neck in the past without complications.? He has no history of significant allergies to anesthesia.? I have examined him carefully today and taken a careful history.? I found no contraindication to the planned surgery or anesthesia.? He is given medical clearance for Gen. anesthesia for orthopedic surgery on January 24, 2025 without conditions.? The risk is small and the benefit is great.? He should do well. He is leaving for [place] for a week's vacation tomorrow.? He will return in 1 week and at that time he will have preoperative blood work and an EKG.? Those results obviously are not available today but will be reviewed. ?Questions?Have you had any new onset fever, chills, cough, congestion, sore throat, shortness of breath, muscle aches??No * ROS:?General/Constitutional:?pain?only normal aches and pains.?Chills?denies.?Fatigue?admits.?Fever?denies.?ENT:?Decreased hearing?denies.?Respiratory:?Cough?denies.?Cardiovascular:?Chest pain with exertion?denies.?Dyspnea on exertion?denies.?Shortness of breath?denies.?Gastrointestinal:?Constipation?occasional.?Decreased appetite?denies.?Diarrhea?denies.?Heartburn?denies.?Nausea?denies.?Rectal bleeding?denies.?Vomiting?denies.?Hematology:?bruising?denies.?petechiae?denies.?Swollen glands?none have been noted.?Genitourinary:?Frequent urination?once a night.?Musculoskeletal:?Muscle aches?denies.?Painful joints?left shoulder for 3 years.?Sciatica?denies.?Weakness?denies.?Skin:?Itching?denies.?Rash?denies.?Skin lesion(s)?denies.?Neurologic:?Difficulty speaking?denies.?Dizziness?denies.?Headache?denies.?Low back pain?denies.?Psychiatric:?Depressed mood?denies.? * Medical History:? * Surgical History:?rotator cu ff tear repair - left [id number] discectomy with anterior fusion houlder surgery scheduled for 24 of january. 01/2025 * Hospitalization/Major Diagno stic Procedure:?Chest pain 11/2020No history * Family History:?Father: aileen e 84 yrs, hypertension, diagnosed with HTN.?Mother: alive 80 yrs.?Siblings: alive.?Maternal Grand Mother: 70 yrs, type II diabetes, diagnosed with DM.?Spouse: alive.?3 brother(s) , 2 sister(s) . 1 son(s) - healthy. .? One sibling has been diagnosed with hypertension. * Social History:?Tobacco Use:?Tobacco Control (Standard)?Tobacco use:?Former smoker ?How long has it been since you last smoked??Greater than 10 years ?Additional Findings: Tobacco non-user?Ex-cigarette smoker ???He was born in [place]. 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 He is now with the [employer] department. * Medications:?TakingAtorvasta tin Calcium 40 MG Tablet TAKE 1 TABLET [...] Stingno[Aller gies Verified] Objective: * Vitals:?Ht: 67, Wt:155, BMI: 24.27, BP:134/79, HR:69, Temp:97.2, Oxygen sat %:98, Ht-cm: 170.18, Wt-k.31. * ???Past Orders: Lab:URINE DIP STICK * Collection Date [...] 10/16/2024) (Performed Date - 10/16/2024) * Examination: ???General Examination: ?GENERAL APPEARANCE:?pleasant, well nourished, well developed, in no acute distress, calm and relaxed, man.?HEAD:?atraumatic, normocephalic.?EYES:?eomi, perrla, anicteric, conjugate.?EARS:?normal.?NOSE:?septum intact.?ORAL CAVITY:?normal, unremarkable.?NECK/THYROID:?no jugular venous distention, no carotid bruit, thyroid normal, Mild decreased range of motion of neck.?LYMPH NODES:?no enlarged lymph nodes,spleen normal.?SKIN:?no suspicious lesions, anicteric.?HEART:?no clicks, gallops, murmurs, or rubs, regular rhythm, S1, S2 normal, no s3, or vascular bruits.?LUNGS:?clear to auscultation .?BREASTS:??no masses palpable bilaterally.?ABDOMEN:?bowel sounds normal, no ascites, no organomegaly, no mass.?RECTAL EXAM:?not examined.?MUSCULOSKELETAL:?extremities unremarkable, no clubbing, cyanosis or edema.?PERIPHERAL PULSES:?normal, Extremities warm and pink and dry, carotid arteries without bruits good pulses present..?NEUROLOGIC:?alert and oriented, cranial nerves 2-12 grossly intact, deep tendon reflexes 2+ symmetrical, motor strength normal upper and lower extremities, sensory exam intact.?PSYCH:?alert, oriented, cognitive function intact, thought process logical, goal directed, speech clear, mood/affect full range, judgement and insight good, good eye contact.? Assessment: * Assessment: 1.?Arthritis of left yeee r - M19.012 (Primary)???Notes :He is medically cleared for surgery on the left shoulder on January 24, 2025.???2.?Benign prostatic hyperplasia with lower urinary tract symptoms - N40.1???Notes :His prostatism is stable with nocturia once a night. No change in his regimen was needed at this time. We discussed lifestyle modification as a means to control nocturia.???3.?Peyronie's disease - N48.6???Notes :This is being treated by the urologist. He says that has improved.???4.?Gastro-esophageal reflux disease without esophagitis - K21.9???Notes :The esophageal reflux is well controlled with hzyh-dif-dlixwzk medications.???5.?Hyperlipidemia - E78.5???Notes :A fasting lipid profile is pending. We will discuss results over the telephone when it is available.???6.?Former smoker - Z87.891???Notes :He is motivated not to smoke. We discussed strategies for maintenance of abstinence in times of stress.??? Plan: * Treatment: 2.?Hyperlipidemia?LAB: PROFILE, FASTING (COMPREHENSIVE METABOLIC) ?LAB: PSA, TOTAL ?LAB: CBC WITH AUTO DIFF ?LAB: Lipid Panel 3.?Others? Continue Atorvastatin Calcium Tablet, 40 MG, TAKE 1 TABLET BY MOUTH EVERY DAY;?Continue EpiPen 2-Shiv Solution Auto-injector, 0.3 MG/0.3ML, as directed, Injection, inject as needed for allergic reaction;?Continue Pantoprazole Sodium Tablet Delayed Release, 40 MG, TAKE 1 TABLET BY MOUTH TWICE DAILY;?Continue Cyclobenzaprine HCl Tablet, 10 MG, 1 tablet, Orally, three times a day;?Continue methylPREDNISolone Tablet Therapy Pack, 4 MG, Oral;?Continue Tadalafil Tablet, 20 MG, 1 tablet as needed, Orally, Once a day.?? * Imaging:? * ?Imaging: ECG 12 lead EK G * Procedure Codes:?74529 MEASU RE BLOOD OXYGEN LEVEL * Preventive Medicine:? ??Counseling:?Smoking/Tobacco Use?Patient counseled on the dangers of tobacco use and urged to quit.?01/02/2025 * Follow Up:?6 Weeks (Reason: ov) * Images: * Sign off status: Completed true * Provider:?Bruno Ho MD Date:?12/10 Generated for Dionte canales/Rob/eTransmitting on:?01/17/2025 11:08 AM [...]
--- OUTSIDE RECORDS SUMMARY | 2025-01-17 11:09 | XMS_ITS ---
Author Organization Bruno Ho III, MD Address [address] [place] [address] [address] [facility] [place] [address] Care Team Providers Care Mineralogy Professor Name Role Phone Bruno Ho Primary Care Provider REASON FOR VISIT new concern Social History Sex Assigned At : Social History Observation Description Sex Assigned At Male Encounters Encounter Location Date Provider Diagnosis Bruno Ho III, MD [address] [place] [address] [place] [address] 10/24/2024 Bruno Ho Plan Of Treatment Next Appt Details Provider Name:Bruno Ho, 11/13/2025 11:00:00 AM, [address] [place] [address] [place], [address], Progress Notes * Fred LYNN SrDOB:12/1954 (69 yo M)Acc No.[id number]:10/24/2024 Progress Notes Patient:?Fred LYNN Provider:?Bruno Ho MD :1955???Age:69 Y???Sex:Male Bryan e:10/24/2024 Address:[address] [place] [address] [place], [id number] Subjective: * Chief Complaints: * ???1. New concern. * Medical History:? Objective: * Vitals:? Assessment: Plan: * Treatment: * Images: * The named appointment provid er may or may not be the originator of this progress note, and it is not deemed complete until electronically signed by the appointment provider. Sign off status: Pending * Provider:?Bruno Ho MD Date:?10/08 Generated for Dionte canales/Rob/Christiane on:?01/17/2025 11:09 AM EDT
[2025-01-17 11:44] LABS: Basophils Percent Auto 0.6 % (0-2); Eosinophils Percent Auto 1.2 % (0-4); Hematocrit 38.5 % (42.0-52.0); Imm Gran Abs Auto 0.01 X10*3/uL (0.00-0.03); Imm Gran Pct Auto 0.3 % (0.0-0.4); Lymphocytes Absolute Auto 1.2 X10*3/uL (1.2-4.9); Lymphocytes Percent Auto 35.4 % (20-40); Mean Corpuscular HGB Conc 33.8 g/dl (31.0-36.0); Mean Corpuscular Hemoglobin 31.9 pg (27.0-33.0); Mean Corpuscular Volume 94.6 fL (80.0-98.0); Mean Platelet Volume 9.8 fL (9.4-12.4); Monocytes Absolute Auto 0.3 X10*3/uL (0.1-1.2); Monocytes Percent Auto 7.5 % (2-11); Neutrophils Absolute Auto 1.9 x10*3/uL (2.0-8.3); Platelet Count 176 X10*3/uL (160-400); Red Blood Count 4.07 X10*6/uL (4.60-5.80); Red Cell Distribution Width 13.5 % (11.0-16.0); White Blood Count 3.5 X10*3/uL (4.8-10.8)
[2025-01-17 12:32] LABS: Alanine Aminotransferase 56 U/L (0-40); Albumin Level 4.5 g/dL (3.5-5.0); Alkaline Phosphatase 53 U/L (39-117); Anion Gap 11 (12-20); Aspartate Amino Transferase 33 U/L (5-37); Bilirubin Total 0.4 mg/dL (0.0-1.0); Blood Urea Nitrogen 10 mg/dL (9-16); Calcium 9.1 mg/dL (8.4-10.2); Carbon Dioxide 29 mmol/L (22-29); Chloride 106 mmol/L (96-108); Cholesterol 219 mg/dL (<200); Estimated Glomerular Filt Rate > 60; Glucose Fasting 85 mg/dL (60-99); HDL Cholesterol 77 mg/dL (>40); LDL Cholesterol Calculated 121 mg/dL (<100); Potassium 3.7 mmol/L (3.3-5.1); Sodium 142 mmol/L (135-145); Total Protein 7.5 g/dL (6.5-8.0); Triglycerides 108 mg/dL (<150)
[2025-01-17 12:42] LABS: Prostate Specific Antigen 1.03 ng/mL (<0.05-4.0)
== END ==
LOC: HO.CARD 09:54
PROVIDERS: PCP Internal Medicine Medical Oncology; Visit Provider Internal Medicine Medical Oncology
DX: Z01.818 Encounter for other preprocedural examination (principal); Z12.5 Encounter for screening for malignant neoplasm of prostate; N40.1 Benign prostatic hyperplasia with lower urinary tract symptoms; E78.5 Hyperlipidemia, unspecified
CPT/HCPCS: 36415; 80053; 80061; 84153; 85025; 93005

== ENCOUNTER → 2025-01-17 10:00 | Outpatient (BNV) | payer OTHER, SELFPAY | PROVIDERS: PCP Internal Medicine Medical Oncology; Visit Provider Internal Medicine | DX: R00.1 Bradycardia, unspecified (principal) | CPT/HCPCS: 93010 ==

== ENCOUNTER 2025-08-14 14:12 | Outpatient (REF) | payer OTHER, SELFPAY ==
--- OUTSIDE RECORDS SUMMARY | 2025-01-19 06:45 | XMS_ITS ---
Author Organization Bruno Ho III, MD Address [address] [place] [address] [place] [address] Care Team Providers Care Clerical And Administrative Workers Name Role Phone Dr. Bruno Ho III Primary Care Provider [phone] REASON FOR VISIT Needs call back from office Social History Sex Assigned At : Social History Observation Description Sex Assigned At Male Encounters Encounter Location Date Provider Diagnosis Bruno Ho III, MD [address] [place] [address] [address] [place] [address] 01/19/2025 Bruno Ho Plan Of Treatment Next Appt Details Provider Name:Bruno Ho , 11/13/2025 11:00:00 AM, [address] [place] [address] [place], [address], Progress Notes * Fred LYNN SrDOB:12/1954 (69 yo M)Acc No.[id number]:01/19/2025 Patient: Fred DENNEY Sr :1955 A ge:69 Y S ex:Male Address:[address] [place], [place] [address] [address] * true * Date: Generated for Lizi ng/Faxing/eTransmitting on: 05:27 PM EDT
--- OUTSIDE RECORDS SUMMARY | 2025-03-15 07:47 | XMS_ITS ---
Author Organization Bruno Ho III, MD Address [address] [place] [address] [place] [address] Care Team Providers Care Sound Installation Worker Name Role Phone Dr. Bruno Ho III Primary Care Provider [phone] REASON FOR VISIT Rx Request Medications Medication SIG (Take, Route, Frequency, Duration) Notes Start Date End Date Status EpiPen 2-Shiv 0.3 MG/0.3ML as directed Injection for allergic reaction for 30 days As needed Active Social History Sex Assigned At : Social History Observation Description Sex Assigned At Male Encounters Encounter Location Date Provider Diagnosis Bruno Ho III, MD [address] [place] [address] [place] [address] 03/15/2025 Bruno Ho Plan Of Treatment Medication Medication Name Sig Start Date Stop Date Notes EpiPen 2-Shiv 0.3 MG/0.3ML as directed In jection for allergic reaction for 30 days Next Appt Details Provider Name:Bruno Ho , 11/13/2025 11:00:00 AM, [address] [place] [address] [place], [address], Progress Notes * Fred LYNN SrDOB:12/1954 (69 yo M)Acc No.[id number]:03/15/2025 Patient: Deana BEATRIZSARAHFred Sr :1955 A ge:69 Y S ex:Male Address:[address] [place], [place] [address] [address] * Refills Refill EpiPen 2-Shiv Solution Auto-injector, 0.3 MG/0.3ML, Injection, 1 Pack, as directed, for allergic reaction, 30 days, Refills=11 * true * Date: Generated for Dionte canales/Rob/Christiane on: 1 05:27 PM EDT
--- OUTSIDE RECORDS SUMMARY | 2025-05-23 07:38 | XMS_ITS ---
Author Organization Bruno Ho III, MD Address [address] [place] [address] [place] [address] Care Team Providers Care Polishing Machine Tender Name Role Phone Dr. Bruno Ho III Primary Care Provider REASON FOR VISIT Lab Request Social History Sex Assigned At : Social History Observation Description Sex Assigned At Male Encounters Encounter Location Date Provider Diagnosis Bruno Ho III, MD [address] [place] [address] [place] [address] 05/23/2025 Bruno Ho Hyperlipidemia E78.5 ; Erectile [...] Provider Name:Bruno Ho , 11/13/2025 11:00:00 AM, [address] [place] [address] [place], [address], Progress Notes * Fred LYNN SrDOB:12/1954 (69 yo M)Acc No.[id number]:05/23/2025 Patient: Fred DENNEY Sr :1955 A ge:69 Y S ex:Male Address:[address] [place] [address] Subjective: * Chief Complaints: * L ab [...] Date: Generated for Dionte canales/Rob/Christiane on: 1 05:26 PM EDT
--- OUTSIDE RECORDS SUMMARY | 2025-06-12 13:00 | XMS_ITS ---
Author Organization Bruno Ho III, MD Address [address] [place] [address] [place] [address] Care Team Providers Care Tripe Finisher Name Role Phone Dr. Bruno Ho III Primary Care Provider REASON FOR VISIT Follow up Social History Sex Assigned At : Social History Observation Description Sex Assigned At Male Encounters Encounter Location Date Provider Diagnosis Bruno Ho III, MD [address] [place] [address] [address] CE[address] [facility] [place] [place] [address] 06/12/2025 Bruno Ho Plan Of Treatment Next Appt Details Provider Name:Bruno Ho , 11/13/2025 11:00:00 AM, [address] [place] [address] [place], [address], Progress Notes * Fred LYNN SrDOB:12/1954 (70 yo M)Acc No.[id number]:06/12/2025 Progress Notes Patient: Deana CEVALLOS Fred Walsh Sr Provider: Promise Ho MD :1955 A ge:69 Y S ex:Male Date:06/12/2025 Address:[address] [place], [place] [address], [place]-[id number] Subjective: * Chief Complaints: * 1 . [...] 0 06/12/2025 Generated for Dionte canales/Rob/Christiane on: 05:27 PM EDT
--- OUTSIDE RECORDS SUMMARY | 2025-06-19 10:30 | XMS_ITS ---
Author Organization Bruno Ho III, MD Address [address] [place] [address] Care Team Providers Care Manager Gift Name Role Phone Dr. Bruno Ho III Primary Care Provider [phone] Allergies Allergen (clinical drug ingredient) Drug/Non Drug [...] Date Provider Diagnosis Bruno Ho III, MD [address] [place] [address] DR SHAH, [place] [id number] 06/19/2025 Bruno Ho Dysphagia R13.10 ; Gastro-esophageal [...] The esophageal reflux is well controlled with vgjy-fyl-lgceoiw medications. 06/19/2025 Former smoker (ICD-10 - Z87.891) [...] PSA, TOTAL 06/19/2025 CBC w DIFF 06/19/2025 XR BARIUM SWALLOW, MODIFIED VIDEO 2024 Lipid Panel 06/19/2025 Next Appt Details Follow Up: 3 Months, Reason: Office visit Provider Name:Bruno Ho , 11/13/2025 11:00:00 AM, [address] [place] [address] [address], [place], [address], Progress Notes * Fred LYNN SrDOB:12/1954 (69 yo M)Acc No.[id number]:06/19/2025 Progress Notes Patient: Fred DENNEY Sr Provider: Promise Ho MD :1955 A ge:69 Y S ex:Male Date:06/19/2025 Address:[address] [place] [address] ANA[place] RIOS, [id number] Subjective: * Chief Complaints: * H yperlipidemiaGERDBenign prostatic hypertrophyCervical spondylosisArthritis left shoulder * HPI: C OVID-19 Screening: . He returns for medical management. His main complaint today is pain in his neck with limitation of range of motion. He recently saw his 's orthopedist in [place] who told him he had osteoarthritis and [...] r otator cuff tear repair - left [id number] discectomy with anterior fusion houlder surgery scheduled [...] dditional Findings: Tobacco non-user E x-cigarette smoker H e was born in [place]. 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 He is now with the [email or web address]. * Medications: T akingAtorvastatin Calcium 40 MG [...] reconciled with the patient * Allergies: B ee Albino[Allergies Verified] Objective: * Vitals: H t: 69, [...] :The esophageal reflux is well controlled with sfzs-qlg-bcjperu medications. 2 . D ysphagia - R13.10 [...] MD Date: 0 06/19/2025 Generated for Dionte canales/Rob/Christiane on: 1 05:26 PM EDT History and Physical Notes * [...]
--- NOTE | ~2025-08-14 | FL_ITS ---
EXAMINATION: XR MODIFIED BARIUM SWALLOW CLINICAL INFORMATION: Dysphagia COMPARISON: None available. TECHNIQUE: Modified barium swallow FINDINGS: Modified barium swallow performed by speech pathologist. Patient swallowed solids and liquids of varying consistency. No evidence of aspiration. Relative decrease in caliber of the esophageal lumen at the level of C6-7, which may be related to the anterior osteophytes at this level. FLUOROSCOPY TIME: 34 seconds DOSE AREA PRODUCT: 433 uGy-m2 (microgray-meter squared) FL/FL Modified Barium Swallow IMPRESSION: No evidence of aspiration. See speech pathology report for details. Electronically signed by: Smooth Poole MD 08/14/2025 05:00 PM EDT
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
--- OUTSIDE RECORDS SUMMARY | 2025-08-14 17:27 | XMS_ITS | Clinical Summary ---
Author Organization [address] Address [address] [place] [phone] Phone Care Team Providers Care Weave Defect Charting Clerk Name Role Phone Bruno Ho MD Primary Care Provider [phone] Allergies No known active allergies Social History Tobacco Use Types Packs/Day Years Used Date Smoking Tobacco: Never Assessed Sex and Gender Information Value Date Recorded Sex Assigned at Not on file Legal Sex Male 3:52 PM EDT Gender Identity Not on file Sexual Orientation Not on file Last Filed Vital Signs Vital Sign Reading Time Taken Comments Blood Pressure 140/79 06/01/2022 7:00 PM EDT Pulse 51 06/01/2022 7:00 PM EDT Temperature 36.7 C (98.1 F) 06/01/2022 4:19 PM EDT Respiratory Rate 11 06/01/2022 7:00 PM EDT Oxygen Saturation 98% 06/01/2022 7:00 PM EDT Inhaled Oxygen Concentration - - Weight 67.3 kg (148 lb 5.9 oz) 06/01/2022 4:19 P M EDT Height 157.5 cm (5' 2 ) 06/01/2022 4:19 PM EDT Body Mass Index 27.14 06/01/2022 4:19 PM EDT Plan of Treatment Health Maintenance Due Date Last Done Comments HIV screening 1970 Hepatitis C screening 1975 Tetanus adult (Td q 10,TDAP once) 1977 Lipid disorder screening 1997 Colon cancer screening, Colonoscopy 2002 Pneumococcal Vaccine (50+ years) (1 of 1 - PCV) 2007 Shingles vaccine (Shingrix) (1 of 2 - Shingrix (RZV) 2 Dose Standard Series) 2007 Diabetes screening 06/01/2025 06/01/2022 Influenza vaccine 06/08/2025 Covid-19 vaccine series ( season) 2025 12/19/2020, 11/21/2020 RSV Immunization (1 - 1-dose 75+ series) 2032 Meningococcal B Vaccine Aged Out No l onger eligible based on patient's age to complete this topic Meningococcal Vaccine Aged Out No tory maggy eligible based on patient's age to complete this topic Procedures Procedure Name Priority Date/Time Associated Diagnosis Comments BASIC METABOLIC PANEL STAT 06/01/2022 4:28 PM EDT from Last 3 Months or Most Recently Relevant to Health Maintenance Results * Basic metabolic panel (06/01/2022 4:28 PM EDT) Glucose 87 65 - 110 mg/dL 06/01/2022 5:03 PM [facility] Comment: Non-fastin-110 mg/dL Fasting (minimum 6 hrs): 65-99 mg/dL BUN 11 7 - 18 mg/dL 06/01/2022 5:03 PM [facility] Creatinine 0.74 0.70 - 1.30 mg/dL 06/01/2022 5:03 PM [facility] eGFR (-[place]THER[place] IRISH) >60 >60 mL/min/1.7 3m2 06/01/2022 5:03 PM [facility] eGFR (NON -Cuban) >60 >60 mL/min/1.7 3m2 06/01/2022 5:03 PM [facility] Comment: (NOTE) These are estimated GFR values resulting from utilization of a calculation incorporating the best data available for input, but all assumptions may not be correct in every case. In addition, there are several situations (elderly over 70 years, , serious co morbidities, extremes of body size or nutritional status) which could contribute to a misleading result. Therefore, clinical correlation is advised to prevent arriving at an erroneous conclusion based solely on the calculation utilized. Sodium 141 136 - 145 mmol/L 06/01/2022 5:03 PM [facility] Potassium 3.7 3.5 - 5.1 mmol/L 06/01/2022 5:03 PM EDT [facility] Chloride 107 98 - 107 mmol/L 06/01/2022 5:03 PM EDT [facility] CO2 29 21 - 32 mmol/L 06/01/2022 5:03 PM EDT [facility] Anion Gap 5 5 - 15 mmol/L 06/01/2022 5:03 PM EDT [facility] Calcium 9.3 8.5 - 10.1 mg/dL 06/01/2022 5:03 PM EDT [facility] Blood Venipuncture / Unknown 06/01/2022 4:28 PM EDT 06/01/2022 4:37 PM EDT Aris Barrera MD LAB BLOOD ORDERABLES Final Res ult [address] [phone] from Last 3 Months or Most Recently Relevant to Health Maintenance [facility] [employer] [facility] on file Care Teams Weave Defect Charting Clerk Relationship Specialty Start Date End Date Bruno Ho MD PCP - General Medical Oncology 06/01/22
--- NOTE | 2025-08-15 09:47 | MHC.SL.IMP ---
Date of Plan of Treatment: 08/14/25 Onset of Symptoms/Illness: 06/25/25 Date Treatment Started: 08/14/25 Admitting Diagnosis: Dysphagia Primary Speech & Language Diagnosis: R13.13 Pharyngeal Phase Dysphagia Reason for Today's Visit: 36943 Modified Barium Swallow Study Pre-evaluation Dietary Consistencies: Regular Pre-evaluation Liquid Consistency: Thin Pre-evaluation Medication Administration: Whole with Liquid Medical History: Modified Barium Swallow Study Fluoroscopic Evaluation of Swallowing Function CPT Code 35556 Evaluation Year: 2024 Reason for Study: Difficulty swallowing Referring Physician: Bruno Ho MD Evaluating Clinician: Desiree Vargas MA, CCC-HVAC DESIGN MECHANICAL ENGINEER Study Number: 1 Patient Name: Fred Lynn Status: Outpatient, Ambulatory Age: 70 Sex: Male Medical History N/A at time of visit Current (pre-evaluation) Intake/Diet: Route: PO Diet Grade: Regular Liquid Consistencies: Thin Pre-Study Functional Oral Intake Scale (FOIS): 7- Total oral intake with no restrictions Pain: None reported at time of study SUBJECTIVE: Patient is a 70 year old male referred for a modified barium swallow study. Patient reports globus sensation below the thyroid cartilage. He also reports sometimes coughing after drinking. Oral Motor Exam Facial Symmetry: Symmetrical Mouth Occlusion: Normal Oral-Facial Teeth Characteristics: Intact/Normal Tongue Size: Normal Is patient able to manage secretions?: Yes Food and Liquid Trials: Oral Impairment: Lip Closure: Did not test Oral Impairment: Tongue Control During Bolus Hold: 1=Escape to lateral buccal cavity/floor of mouth (FOM) Oral Impairment: Bolus Preparation/Mastication: 0=Timely and efficient chewing and mashing Oral Impairment: Bolus Transport/Lingual Motion: 1= Delayed initiation of tongue motion Oral Impairment: Oral Residue: 1=Trace residue lining oral structures Oral Impairment:Initiation of Pharyngeal Swallow: 1=Bolus head in valleculae Pharyngeal Impairment: Soft Palate Elevation: 0=No bolus between soft palate (SP)/pharyngeal wall (PW) Pharyngeal Impairment: Laryngeal Elevation: 0=Complete superior movement of thyroid cartilage (see description) Pharyngeal Impairment: Anterior Hyoid Excursion: 0=Complete anterior movement Pharyngeal Impairment: Epiglottic Movement: 0=Complete inversion Pharyngeal Impairment: Laryngeal Vestibular Closure:: 0=Complete: no air/contrast in laryngeal vestibule Pharyngeal Impairment: Pharyngeal Stripping Wave: 0=Present: complete Pharyngeal Impairment: Pharyngeal Contraction: Did not test Pharyngeal Impairment: Pharyngoesophageal Segment Openin=Partial distention/partial duration: partial obstruction of flow Pharyngeal Impairment: Tongue Base (TB) Retraction: 0=No contrast between tongue base and posterior pharyngeal wall Pharyngeal Impairment: Pharyngeal Residue: 1=Trace residue within or on pharyngeal structures Pharyngeal Impairment: Esophageal Clearance Upright Position: Did not test Impressions and Recommendations OBJECTIVE: Time-out: performed at 15:00 Evaluation Start: 14:45; Stop: 14:50 Patient Positioning: Standing Viewing Planes: LATERAL ONLY Contrast: MBSImP? Standardized Protocol using commercially prepared, standardized Barium viscosities, including: Varibar? THIN LIQUID (40% w/v, <15 cps) , Varibar? PUDDING (40% w/v, <9230-5985 cps) , 1/2 Shortbread Cookie (1 x1 x.25 ) MBSImP ID: [id number] MBSImP Results: Lip closure for intraoral bolus containment could not be assessed due to logistical reasons not related to physiologic impairment. Tongue control during bolus hold allowed bolus escape to the lateral buccal cavity/floor of mouth. Bolus preparation and mastication resulted in timely and efficient chewing and mashing. Bolus transport/lingual motion demonstrated delayed initiation of tongue motion. Oral residue was a trace, lining oral structures. Initiation of the pharyngeal swallow occurred when the bolus head was in the valleculae. Soft palate elevation resulted in no bolus between the soft palate and the pharyngeal wall. Laryngeal elevation demonstrated complete superior movement of the thyroid cartilage with complete approximation of the arytenoids to the epiglottic petiole. Anterior hyoid excursion demonstrated complete anterior movement. Epiglottic movement resulted in complete inversion. Laryngeal vestibular closure was complete, as indicated by no air or contrast within the laryngeal vestibule at the height of the swallow. Pharyngeal stripping wave was present and complete. Pharyngeal contraction could not be determined due to logistical reasons not related to physiologic impairment. Pharyngoesophageal segment opening demonstrated partial distension/partial duration, with partial obstruction of bolus flow. Tongue base retraction allowed no contrast between the retracted tongue base and the posterior pharyngeal wall. Pharyngeal residue was a trace within or on pharyngeal structures. Esophageal clearance in the upright position could not be assessed due to logistical reasons not related to physiologic impairment. Oral Impairment Score: 3 (absence of score, component 1) Pharyngeal Impairment Score: 1 (absence of score, component 13) Esophageal Impairment Score: --- (absence of score, component 17) Laryngeal Penetration and Aspiration: Neither penetration nor aspiration was observed in today's study with Cookie, Pudding-thick, Thin. Structural Abnormalities Noted: Cervical Osteophytes noted, but had no functional significance. Cervical Hardware noted, but had no functional significance. ASSESSMENT: This exam was performed by the radiologist and the speech pathologist. Patient was standing for lateral view. He fed himself independently and trialed the following consistencies: -thin liquid (individual and rapid cup sips) -puree (mixture applesauce with barium pudding) -regular (shortbread cookie coated in barium pudding) Overall good tongue control with no premature posterior escape from the oral cavity. Mastication was timely and efficient. Posterior lingual motion for bolus transport was mildly delayed in initiation, but with brisk movement. Pharyngeal swallow trigger initiated as the bolus head reached the valleculae. Post-swallow, there was trace residue pooling to the floor of mouth and lining the tongue and palate, which cleared on secondary swallows. No evidence of nasopharyngeal reflux. Complete laryngeal elevation with complete epiglottic inversion and complete laryngeal vestibular closure. No evidence of aspiration or penetration during this exam. There was trace residue seen in the valleculae and pyriforms which completely cleared on subsequent swallows. Partial distention through the pharyngoesophageal opening (PES).Incidentally noted cervical hardware, with patient reporting he had a cervical fusion. Anterior osteophytes also noted C6-C7. Liquid Intake Recommendation: Thin Dietary Recommendations: Regular Compensatory Strategies Recommended: Sitting Upright (90 deg), Small Bites and Sips, Alternate Liquids/Solids, Rate of Ingestion Change Recommendation for Speech Therapy: NA:Typical Evaluation Text Comment: PLAN: Intake Recommendations: Route: PO Diet Grade: Regular Liquid Consistencies: Thin Post-Study Functional Oral Intake Scale (FOIS): 7- Total oral intake with no restrictions Overall, exam was unremarkable. Patient evidenced good airway protection with complete epiglottic inversion and complete laryngeal vestibular closure. There was no evidence of aspiration or penetration. Also appreciated good oral and pharyngeal clearing with no significant residuals seen. Incidentally noted cervical hardware, and C6-C7 osteophytes, with narrowing at the UES. Suggested Referrals: Otolaryngology Indication for Referral: partial distention through PES, hx cervical fusion, visualized anterior osteophytes C6-C7 Therapy Recommendations: Therapy will be discontinued, as patient?s swallow function in the oral and pharyngeal phases is considered to be WFL. Clinician - Supplemental, Miscellaneous Communication: It is important to note MBSS objective studies are snapshots in time and Patient function might vary with factors such as time of day or concomitant medical conditions. For this reason, the final treatment plan for this patient should rest with their medical care team. Additional recommendations should be considered with the totality of the Patient in mind. Thank for the opportunity to participate in the care of this patient. If you have any questions about the content of this report, please contact the [facility] at [facility]. Education: Education regarding findings from today's study and plans for therapy were provided to Patient only through Verbal Instruction. Understanding was expressed by the Patient only. Production Troubleshooter Clinician/Clinical Fellow: No Supervisory Statement: N/A Speech Language Pathologist: Desiree Vargas M.A., CCC-HVAC DESIGN MECHANICAL ENGINEER
== END 2025-08-14 14:13 | disposition home or self-care (01) ==
LOC: HO.XRAY 14:12
PROVIDERS: Visit Provider Internal Medicine Medical Oncology
DX: R13.10 Dysphagia, unspecified (principal)
CPT/HCPCS: 74230; 92611

== ENCOUNTER → 2025-08-14 14:15 | Outpatient (BNV) | payer OTHER, SELFPAY | PROVIDERS: Visit Provider Radiology Diagnostic Ultrasound | DX: R13.10 Dysphagia, unspecified (principal) | CPT/HCPCS: 74230 ==

== ENCOUNTER 2025-09-04 13:51 | Outpatient (REF) | payer OTHER, SELFPAY ==
--- OUTSIDE RECORDS SUMMARY | 2024-10-24 13:15 | XMS_ITS ---
Author Organization Bruno Ho III, MD Address [address] [place] [address] [place] [address] Care Team Providers Care Insulation Mechanic Name Role Phone Dr. Bruno Ho III Primary Care Provider REASON FOR VISIT new concern Social History Sex Assigned At : Social History Observation Description Sex Assigned At Male Encounters Encounter Location Date Provider Diagnosis Bruno Ho III, MD [address] [place] [address] [place] [address] 10/24/2024 Bruno Ho Plan Of Treatment Next Appt Details Provider Name:Bruno Ho , 11/13/2025 11:00:00 AM, [address] [place] [address] [place], [address], Progress Notes * Fred LYNN SrDOB:12/1954 (70 yo M)Acc No.[id number]:10/24/2024 Progress Notes Patient: Deana CEVALLOS Fred Walsh Sr Provider: Promise Ho MD :1955 A ge:69 Y S ex:Male Date:10/24/2024 Address:[address] [place] [address] [place], MAC[place]-[phone] Subjective: * Chief Complaints: * 1 . New concern. * Medical History: Objective: * Vitals: Assessment: Plan: * Treatment: * Images: * The named appointment provid er may or may not be the originator of this progress note, and it is not deemed complete until electronically signed by the appointment provider. Sign off status: Pending * Provider: Promise Ho MD Date: 1 12/25/2023 Generated for Dionte canales/Rob/Christiane on: 06:11 PM EDT
--- OUTSIDE RECORDS SUMMARY | 2024-11-10 06:00 | XMS_ITS ---
Author Organization Bruno Ho III, MD Address [address] [place] [address] Care Team Providers Care Land Lease Information Clerk Name Role Phone Dr. Bruno Ho III Primary Care Provider [phone] Allergies Allergen (clinical drug ingredient) Drug/Non Drug Allergy documented on EMR Reaction Allergy Type Onset Date Status Bee Sting Unknown Allergy Active Results Component Value Reference Range Notes URINE DIP STICK Reviewed date:11/10/2024 10:27:24 AM Interpretation: Performing Lab: Notes/Report: SG 1.005 1.005 - 1.025 pH 7.0 5.0 - 9.0 ATIF Negative Negative - NIT Negative Negative - PRO Negative Negative - Trace GLU Negative Negative - KET Negative Negative - UBG 0.2 0.1 - 1.8 ANAMARIA Negative 0.2 - 1.3 BLD Negative Negative - PROFILE, FASTING (COMPREHENS BUZZ METABOLIC) Reviewed date:01/12/2025 09:38:48 AM Interpretation: Performing Lab: Notes/Report: TSH (THYROID STIMULATING HOR LEON) Reviewed date:01/12/2025 09:40:01 AM Interpretation: Performing Lab: Notes/Report: CBC WITH AUTO DIFF Reviewed date:01/12/2025 09:39:51 AM Interpretation: Performing Lab: Notes/Report: Magnesium Reviewed date:01/12/2025 09:39:41 AM Interpretation: Performing Lab: Notes/Report: Lipid Panel Reviewed date:01/12/2025 09:39:29 AM Interpretation: Performing Lab: Notes/Report: PSA Free and Total Reviewed date:01/12/2025 09:39:19 AM Interpretation: Performing Lab: Notes/Report: Free T4 (Free Thyroxine) Reviewed date:01/12/2025 09:39:05 AM Interpretation: Performing Lab: Notes/Report: Reason For Referral Reason Consult and Treat Needs Sleep Study Excessive Snoring Diagnosis 1 Snoring (R06.83) Diagnosis 2 Daytime somnolence ( R40.0) Referral Organization Bruno Ho III, MD Referring Provider First Name Bruno Referring Provider Last Name [place] Referring Provider Speciality Internal M edicine Referred Provider EVARISTO GILLIS Referred Provider Specialty Pulmonary Di seases General Notes DHilary 11/13/2024 01:37:43 PM > Referral and Progress note faxciaran, Carin Gee CMA 01/29/2025 09:36:12 AM > received faxed notice pt was booked for appt on 12/05/2024 pt called cancelled this appt and will call back to reschedule Referral Priority Routine Referral Appointment Date 12/05/2024 REASON FOR VISIT Annual Exam, cough, dizzy, sleeping isssues, yelling, fighting in sleep, shoulder 01/24 bone and joint, tear and scar left dshoulder, no more shots got rx for Medications Medication SIG (Take, Route, Frequency, Duration) Notes Start Date End Date Status EpiPen 2-Shiv 0.3 MG/0.3ML as directed In jection inject as needed for allergic reaction Active Atorvastatin Calcium 40 MG TAKE 1 TABLET BY MOUTH EVERY DAY Active methylPREDNISolone 4 MG Oral Active Tadalafil 20 MG 1 tablet as needed Orally Once a day for 12 days 11/10/2024 04/03/2025 Active Pantoprazole Sodium 40 MG TAKE 1 TABLET BY MOUTH TWICE DAILY Active Cyclobenzaprine HCl 10 MG 1 tablet Orall y three times a day 07/07/2024 Active Social History Tobacco Use: Social History Observation Description Date Details (start date - stop date) Former Smoker NA - NA Sex Assigned At : Social History Observation Description Sex Assigned At Male Tobacco Use/Smoking Question Answer Notes Patient is a former smoker How long has it been since you last smoked? > 10 years Additional Findings: Tobacco Non-User Ex-cigaret te smoker Tobacco Control (Standard) Question Answer Notes Tobacco use: Former smoker How long has it been since you last smoked? Grea ter than 10 years Additional Findings: Tobacco non-user Ex-cigaret te smoker AUDIT-C (Standard) Question Answer Notes Did you have a drink contain ing alcohol in the past year? Yes How often did you have six o r more drinks on one occasion in the past year? 4 or more times a week (4 points) How many drinks did you have on a typical day when you were drinking in the past year? 1 or 2 drinks (0 point) How often did you have a dri nk containing alcohol in the past year? Never (0 point) Points 4 Interpretation Positive Problems Problem Type SNOMED Code ICD Code Onset Dates Problem Status W/U Status Risk Notes Problem Neutropenia (350560957) Neutropenia, unspecified (D70.9) Active confirmed A CBC has been ordered to be done within the next week. He has had no recent infections. Problem [id number] Primary osteoarthritis , right shoulder (M19.011) Active confirmed He is scheduled to have surgery on his right shoulder in [place] in January 2025. Vital Signs Temperature 97.6 degrees Fahrenheit 11/10/19 25 Blood pressure systolic 134 mm Hg 11/10/19 25 Blood pressure diastolic 70 mm Hg 025 Heart Rate 69, 70.0 /min 11/10/2024 Height 67 in 11/10/2024 Weight 154 lbs 11/10/2024 BMI 24.12 kg/m2 11/10/2024 Oximetry 99.0 % 11/10/2024 Encounters Encounter Location Date Provider Diagnosis Bruno Ho III, MD [address] [place] [address] DR [facility] [place] [address] 11/10/2024 Bruno Ho Erectile dysfunction N52.9 ; Benign prostatic hyperplasia with lower urinary tract symptoms N40.1 ; Former smoker Z87.891 ; Hyperlipidemia E78.5 ; Gastro-esophageal reflux disease without esophagitis K21.9 ; Peyronie's disease N48.6 ; Neutropenia, unspecified D70.9 and Primary osteoarthritis, right shoulder M19.011 Assessments Encounter Date Diagnosis (ICD Code) Assessment Notes Treat ment Notes Treatment Clinical Notes 11/10/2024 Erectile dysfunction (ICD-10 - N52.9) I have refilled his tadalafil. He reports the perone's disease is stable. 11/10/2024 Benign prostatic hyperplasia with lower urinary tract symptoms (ICD-10 - N40.1) His prostatism is stable with nocturia once a night. No change in his regimen was needed at this time. We discussed lifestyle modification as a means to control nocturia. 11/10/2024 Former smoker (ICD-1 0 - Z87.891) He is motivated not to smoke. We discussed strategies for maintenance of abstinence in times of stress. 11/10/2024 Hyperlipidemia (ICD-10 - E78.5) A fasting lipid profile is pending. We will discuss results over the telephone when it is available. 11/10/2024 Gastro-esophageal reflux disease without esophagitis (ICD-10 - K21.9) The esophageal reflux is well controlled with rqgp-wpa-radhcuc medications. 11/10/2024 Peyronie's disease (ICD-10 - N48.6) This is being treated by the urologist. He says that has improved. 11/10/2024 Neutropenia, unspecified (ICD-10 - D70.9) A CBC has been ordered to be done within the next week. He has had no recent infections. 11/10/2024 Primary osteoarthritis, right shoulder (ICD-10 - M19.011) He is scheduled to have surgery on his right shoulder in [place] in January 2025. Plan Of Treatment Medication Medication Name Sig Start Date Stop Date Notes EpiPen 2-Shiv 0.3 MG/0.3ML as directed In jection inject as needed for allergic reaction Atorvastatin Calcium 40 MG TAKE 1 TABLET BY MOUTH EVERY DAY methylPREDNISolone 4 MG Oral Tadalafil 20 MG 1 tablet as needed O rally Once a day for 12 days 11/10/2024 04/03/2025 Pantoprazole Sodium 40 MG TAKE 1 TABLET BY MOUTH TWICE DAILY Cyclobenzaprine HCl 10 MG 1 tablet Orall y three times a day 07/07/2024 Referrals Referral Date Details 11/10/2024 11/10/2024, Consult and Treat Needs Sleep Study Excessive Snoring, EVARISTO GILLIS Next Appt Details Follow Up: As Scheduled, Bef ore the surgery, Reason: Pre-op, Pre-operative check-up Provider Name:Bruno Ho , 11/13/2025 11:00:00 AM, [address] [place] [address] [address], [place], [address], Progress Notes * Fred LYNN SrDOB:12/1954 (69 yo M)Acc No.[id number]:11/10/2024 Progress Notes Patient: Fred DENNEY Sr Provider: Promise Ho MD :1955 A ge:69 Y S ex:Male Date:11/10/2024 Address:[address] [place] [address] [facility] [id number] Subjective: * Chief Complaints: * A nnual ExamCoughDizzySleeping isssues, yelling, fighting in sleepShoulder 01/24 bone and joint, tear and scar left dshoulder, no more shots got rx for * HPI: D epression Screening: PHQ-9 L ittle interest or pleasure in doing things?Nearly every day F eeling down, depressed, or hopeless N early every day T rouble falling or staying asleep, or sleeping too much S everal days F eeling tired or having little energy M ore than half the days P oor appetite or overeating N early every day F eeling bad about yourself or that you are a failure, or have let yourself or your family down N early every day T rouble concentrating on things, such as reading the newspaper or watching television N early every day M oving or speaking so slowly that other people could have noticed; or the opposite, being so fidgety or restless that you have been moving around a lot more than usual N early every day T houghts that you would be better off or of hurting yourself in some way N early every day (Consider Suicide Assessment Risk) T otal Score 2 4 I nterpretation S evere Depression C OVID-19 Screening: Questions H ave you had any new onset fever, chills, cough, congestion, sore throat, shortness of breath, muscle aches? N o S DARLENE Questions: SDOH Questions I n the past year have you been worried about losing your housing? N o I n the past year have you or any family members you live with been unable to get any of the following when it was really needed? Check all that apply: N one * : The patient, a 69-year-old male, presented with a persistent cough that he described as a 'smoker's cough'. He reported that the cough has been present for several months and is accompanied by phlegm. The patient also reported experiencing dizziness, particularly when changing positions such as standing up or walking up stairs. He also reported having sleep disturbances, including nightmares and yelling in his sleep. The patient also mentioned having a shoulder surgery scheduled for the 24 of January. * ROS: G eneral/Constitutional: pain S ore from coughing, chronic right shoulder pain, otherwise only normal aches and pains. C hills d enies. F atigue a dmits. F ever?denies. A llergy/Immunology: Admits C ough, i s non-productive. E NT: Decreased hearing d enies. E ndocrine: Admits D izziness. R espiratory: Cough n on-productive. C ardiovascular: Chest pain with exertion d enies. D yspnea on exertion?denies. S hortness of breath d enies. G astrointestinal: Constipation o ccasional. D ecreased appetite d enies. D iarrhea d enies. H eartburn d enies. N ausea d enies. R ectal bleeding d enies. V omiting d enies. H ematology: bruising d enies. p etechiae d enies. S wollen glands n one have been noted. G enitourinary: Frequent urination o nce a night. M usculoskeletal: Muscle aches d enies. P ainful joints d enies. S ciatica d enies. W eakness d enies. S kin: Itching d enies. R kaveh d enies. S kin lesion(s)?denies. N eurologic: Difficulty speaking d enies. D izziness d enies.?Headache d enies. L ow back pain d enies. P sychiatric: Depressed mood d enies. * Medical History: * Surgical History: r otator cuff tear repair - left [id number] discectomy with anterior fusion houlder surgery scheduled for 24 of january. 01/2025 * Hospitalization/Major Diagno stic Procedure: C hest pain 11/2020No history * Family History: F ather: alive 84 yrs, hypertension, diagnosed with HTN. M other: alive 80 yrs. S iblings: alive. M aternal Grand Mother: 70 yrs, type II diabetes, diagnosed with DM. S pouse: alive. 3 brother(s) , 2 sister(s) . 1 son(s) - healthy. . One sibling has been diagnosed with hypertension. * Social History: T obacco Use: T obacco Use/Smoking P atient is a f ormer smoker H ow long has it been since you last smoked??> 10 years A dditional Findings: Tobacco Non-User E x-cigarette smoker Tobacco Control (Standard) T obacco use: F ormer smoker H ow long has it been since you last smoked??Greater than 10 years A dditional Findings: Tobacco non-user E x-cigarette smoker D rugs/Alcohol: D rugs H ave you used drugs other than those for medical reasons in the past 12 months? N o D rug/Alcohol: A RAFAEL-C (Standard) D id you have a drink containing alcohol in the past year? Y es H ow often did you have six or more drinks on one occasion in the past year? 4 or more times a week (4 points) H ow many drinks did you have on a typical day when you were drinking in the past year? 1 or 2 drinks (0 point) H ow often did you have a drink containing alcohol in the past year? N ever (0 point) P oints 4 I nterpretation P ositive Jadon kothari was born in [place]. 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 He is now with the [employer] department. * Medications: T akingEpiPen 2-Shiv 0.3 MG/0.3ML Solution Auto-injector as directed Injection inject as needed for allergic reaction Pantoprazole Sodium 40 MG Tablet Delayed Release TAKE 1 TABLET BY MOUTH TWICE DAILY Cyclobenzaprine HCl 10 MG Tablet 1 tablet Orally three times a day Atorvastatin Calcium 40 MG Tablet TAKE 1 TABLET BY MOUTH EVERY DAY methylPREDNISolone 4 MG Tablet Therapy Pack Oral Taking EpiPen 2-Shiv 0.3 MG/0.3ML Solution Auto-injector as directed Injection inject as needed for allergic reaction Taking Pantoprazole Sodium 40 MG Tablet Delayed Release TAKE 1 TABLET BY MOUTH TWICE DAILY Taking Cyclobenzaprine HCl 10 MG Tablet 1 tablet Orally three times a day Taking Atorvastatin Calcium 40 MG Tablet TAKE 1 TABLET BY MOUTH EVERY DAY Taking methylPREDNISolone 4 MG Tablet Therapy Pack Oral DiscontinuedAzithromycin 250 MG Tablet as directed Orally 2 Tablets on the first day, one tablet the rest of the days Medication List reviewed and reconciled with the patientDiscontinued Azithromycin 250 MG Tablet as directed Orally 2 Tablets on the first day, one tablet the rest of the days Medication List reviewed and reconciled with the patient * Allergies: Rose Posada[Allergies Verified] Objective: * Vitals: H t: 67, Wt:154, BMI:24.12, BP:134/70, HR: 69,70.0, Temp:97.6, Oxygen sat %:99.0, Ht-cm: 170.18, Wt-k.85. * P ast Orders: I maging:XR chest 2V (Order Date - 10/16/2024) (Performed Date - 10/16/2024) Lab:URINE DIP STICK * Collection Date 11/10/2024 11/10/2023 06/08/2022 Collection Time 02:15 PM Order Date 11/10/2024 11/09/2023 06/08/2022 SG 1.005 (Ref Range: 1.005 - 1.025) 1.005 (Ref Range: 1.005 - 1.025) 1.010 pH 7.0 (Ref Range: 5.0 - 9.0) 7.0 (Ref Range: 5.0 - 9.0) 7.0 ATIF Negative (Ref Range: Negative -) Negative (Ref Range: Negative -) Negative NIT Negative (Ref Range: Negative -) Negative (Ref Range: Negative -) Negative PRO Negative (Ref Range: Negative - Trace) 15 (Ref Range: Negative - Trace) 0.15 GLU Negative (Ref Range: Negative -) Negative (Ref Range: Negative -) Negative KET Negative (Ref Range: Negative -) Negative (Ref Range: Negative -) Negative UBG 0.2 (Ref Range: 0.1 - 1.8) 0.2 (Ref Range: 0.1 - 1.8) 0.2 ANAMARIA Negative (Ref Range: 0.2 - 1.3) Negative (Ref Range: 0.2 - 1.3) Negative BLD Negative (Ref Range: Negative -) Negative (Ref Range: Negative -) Negative Menstrating NR N/A NA * Examination: G eneral Examination: GENERAL APPEARANCE: p leasant, well nourished, well developed, in no acute distress, calm and relaxed, man. HEAD: a traumatic, normocephalic. EYES: e debby, perrla, anicteric, conjugate. EARS: n ormal. NOSE: s eptum intact. ORAL CAVITY: n ormal, unremarkable. NECK/THYROID: n o jugular venous distention, no carotid bruit, thyroid normal. LYMPH NODES: n o enlarged lymph nodes,spleen normal. SKIN: n o suspicious lesions, anicteric. HEART: n o clicks, gallops, murmurs, or rubs, regular rhythm, S1, S2 normal, no s3, or vascular bruits. LUNGS: c lear to auscultation, no wheezes, rales, rhonchi, good air movement. BREASTS: no masses palpable bilaterally. ABDOMEN: b owel sounds normal, no ascites, no organomegaly, no mass. RECTAL EXAM: n ot examined. MUSCULOSKELETAL: e xtremities unremarkable, no clubbing, cyanosis or edema, [place] to elevation both shoulders, Right worse than left. PERIPHERAL PULSES: n ormal. NEUROLOGIC: a lert and oriented, cranial nerves 2-12 grossly intact, deep tendon reflexes 2+ symmetrical, motor strength normal upper and lower extremities, sensory exam intact. PSYCH: a lert, oriented. - : E ardrums:Normal, Prostate: Normal, Rectum: Normal, Shoulder: Small tear and a lot of scar tissue. Assessment: * Assessment: 1. B enign prostatic hyperplasia with lower urinary tract symptoms - N40.1 (Primary) N otes :His prostatism is stable with nocturia once a night. No change in his regimen was needed at this time. We discussed lifestyle modification as a means to control nocturia. 2 . E rectile dysfunction - N52.9 N otes :I have refilled his tadalafil. He reports the perone's disease is stable. 3 . F ormer smoker - Z87.891 N otes :He is motivated not to smoke. We discussed strategies for maintenance of abstinence in times of stress. 4 . H yperlipidemia - E78.5 N otes :A fasting lipid profile is pending. We will discuss results over the telephone when it is available. 5 . G gris-esophageal reflux disease without esophagitis - K21.9 ?Notes :The esophageal reflux is well controlled with xghn-nbs-ixelzar medications. 6 . P eyronie's disease - N48.6 N otes :This is being treated by the urologist. He says that has improved. 7 . N eutropenia, unspecified - D70.9 N otes :A CBC has been ordered to be done within the next week. He has had no recent infections. 8 . P rimary osteoarthritis, right shoulder - M19.011 N otes :He is scheduled to have surgery on his right shoulder in [place] in January 2025. Plan: * Treatment: 2. H yperlipidemia L AB: PROFILE, FASTING (COMPREHENSIVE METABOLIC) L AB: TSH (THYROID STIMULATING HORMONE) L AB: CBC WITH AUTO DIFF L AB: Magnesium L AB: Lipid Panel L AB: PSA Free and Total L AB: Free T4 (Free Thyroxine) 3. O thers Continue Atorvastatin Calcium Tablet, 40 MG, TAKE 1 TABLET BY MOUTH EVERY DAY; C ontinue EpiPen 2-Shiv Solution Auto-injector, 0.3 MG/0.3ML, as directed, Injection, inject as needed for allergic reaction; C ontinue Pantoprazole Sodium Tablet Delayed Release, 40 MG, TAKE 1 TABLET BY MOUTH TWICE DAILY; C ontinue Cyclobenzaprine HCl Tablet, 10 MG, 1 tablet, Orally, three times a day; C ontinue methylPREDNISolone Tablet Therapy Pack, 4 MG, Oral; S tart Tadalafil Tablet, 20 MG, 1 tablet as needed, Orally, Once a day, 12 days, 12 Tablet, Refills 11. ? Referral To:EVARISTO GILLIS Pulmonary Diseases Reason:Consult and Treat Needs Sleep Study Excessive Snoring * Labs: * L ab: URINE DIP STICK (Collection Date & Time - 11/10/2024) Value Reference Range S G 1.005 1.005 - 1.025 * p H 7.0 5.0 - 9.0 * L EU Negative Negative - * N IT Negative Negative - * P RO Negative Negative - Trace * G [place] Negative Negative - * K ET Negative Negative - * U BG 0.2 0.1 - 1.8 * B IL Negative 0.2 - 1.3 * B LD Negative Negative - * Procedure Codes: 8 1002 URINE-NO [id number] MEASURE BLOOD OXYGEN LEVEL * Preventive Medicine: Counseling: S moking/Tobacco Use Patient counseled on the dangers of tobacco use and urged to quit. 0 11/10/2024 * Follow Up: A s Scheduled, Before the surgery (Reason: Pre-op, Pre-operative check-up) * Images: * Sign off status: Completed true * Provider: Promise Ho MD Date: 0 11/10/2024 Generated for Lizi parker/Rob/eTransmitting on: 1 06:12 PM EDT History and Physical Notes * HPI (History of Present Illness) Category Sub-Category Detail Notes Depression Screening PHQ-9 Little inte rest or pleasure in doing things: Nearly every day Feeling down, depressed, or hopeless: Ne angel every day Trouble falling or staying asleep, or sl eeping too much: Several days Feeling tired or having little energy: M ore than half the days Poor appetite or overeating: Nearly ever y day Feeling bad about yourself o r that you are a failure, or have let yourself or your family down: Nearly every day Trouble concentrating on thi ngs, such as reading the newspaper or watching television: Nearly every day Moving or speaking so slowly that other people could have noticed; or the opposite, being so fidgety or restless that you have been moving around a lot more than usual: Nearly every day Thoughts that you would be b meagan off or of hurting yourself in some way: Nearly every day (Consider Suicide Assessment Risk) Total Score: 24 Interpretation: Severe Depression COVID-19 Screening Questions Have you had any new onset fever, chills, cough, congestion, sore throat, shortness of breath, muscle aches?: No SDOH Questions SDOH Questions In the past year have you been worried about losing your housing?: No In the past year have you or any family members you live with been unable to get any of the following when it was really needed? Check all that apply:: None Examination Category Sub-Category Detail Notes General Examination GENERAL APPEARANCE: pleasant , well nourished, well developed, in no acute distress, calm and relaxed, man HEAD: atraumatic, normocep halic EYES: eomi, perrla, anicte arturo, conjugate EARS: normal NOSE: septum intact NECK/THYROID: no jugular venous di stention, no carotid bruit, thyroid normal HEART: no clicks, gallops, murmurs, or rubs, regular rhythm, S1, S2 normal, no s3, or vascular bruits LUNGS: clear to auscultatio n, no wheezes, rales, rhonchi, good air movement ABDOMEN: bowel sounds normal, no ascites, no organomegaly, no mass NEUROLOGIC: alert and oriented, cranial nerves 2-12 grossly intact, deep tendon reflexes 2+ symmetrical, motor strength normal upper and lower extremities, sensory exam intact SKIN: no suspicious lesion s, anicteric PERIPHERAL PULSES: normal BREASTS: no masses palpable b ilaterally MUSCULOSKELETAL: extremities unremark able, no clubbing, cyanosis or edema, [place] to elevation both shoulders, Right worse than left LYMPH NODES: no enlarged lymph no johnny,spleen normal RECTAL EXAM: not examined PSYCH: alert, oriented ORAL CAVITY: normal, unremarkable Consultation Request Notes Referral Date Referring Provider Referred Provider Not es 11/10/2024 Bruno Ho MIGUEL Consult a nd Treat Needs Sleep Study Excessive Snoring
--- OUTSIDE RECORDS SUMMARY | 2025-01-02 05:15 | XMS_ITS ---
Author Organization Bruno Ho III, MD Address [address] [place] [address] Care Team Providers Care Community Relations Liaison Name Role Phone Dr. Bruno Ho III Primary Care Provider Allergies Allergen (clinical drug ingredient) Drug/Non Drug Allergy documented on EMR Reaction Allergy Type Onset Date Status Bee Sting Unknown Allergy Active REASON FOR VISIT Medical clearance for Left shoulder surgery on 01/24/[address] Strong,, Rupture of extensor tendons,Rotator cuff tear, Bone spurs left shoulder, Subluxation of biceps muscle, Benign prostatic hypertrophy, Cervical radiculopathy Medications Medication SIG (Take, Route, Frequency, Duration) Notes Start Date End Date Status methylPREDNISolone 4 MG Oral Active Tadalafil 20 MG 1 tablet as needed O rally Once a day 11/10/2024 Active EpiPen 2-Shiv 0.3 MG/0.3ML as directed In jection inject as needed for allergic reaction Active Pantoprazole Sodium 40 MG TAKE 1 TABLET BY MOUTH TWICE DAILY Active Cyclobenzaprine HCl 10 MG 1 tablet Orall y three times a day 07/07/2024 Active Atorvastatin Calcium 40 MG TAKE 1 TABLET BY MOUTH EVERY DAY Active Social History Tobacco Use: Social History Observation Description Date Details (start date - stop date) Former Smoker NA - NA Sex Assigned At : Social History Observation Description Sex Assigned At Male Tobacco Control (Standard) Question Answer Notes Tobacco use: Former smoker How long has it been since you last smoked? Grea ter than 10 years Additional Findings: Tobacco non-user Ex-cigaret te smoker Problems Problem Type SNOMED Code ICD Code Onset Dates Problem Status W/U Status Risk Notes Problem [id number] Arthritis of left shoulder (M19.012) Active confirmed He is medically cleared for surgery on the left shoulder on January 24, 2025. Vital Signs Temperature 97.2 degrees Fahrenheit 01/02/20 Blood pressure systolic 134 mm Hg 01/02/20 Blood pressure diastolic 79 mm Hg 025 Heart Rate 69 /min 01/02/2025 Height 67 in 01/02/2025 Weight 155 lbs 01/02/2025 BMI 24.27 kg/m2 01/02/2025 Oximetry 98 % 01/02/2025 Encounters Encounter Location Date Provider Diagnosis Bruno Ho III, MD [address] [place] [address] [place] [address] 01/02/2025 Bruno Ho Benign prostatic hyperplasia with lower urinary tract symptoms N40.1 ; Arthritis of left shoulder M19.012 ; Peyronie's disease N48.6 ; Gastro-esophageal reflux disease without esophagitis K21.9 ; Hyperlipidemia E78.5 and Former smoker Z87.891 Assessments Encounter Date Diagnosis (ICD Code) Assessment Notes Treat ment Notes Treatment Clinical Notes 01/02/2025 Benign prostatic hyperplasia with lower urinary tract symptoms (ICD-10 - N40.1) His prostatism is stable with nocturia once a night. No change in his regimen was needed at this time. We discussed lifestyle modification as a means to control nocturia. 01/02/2025 Arthritis of left shoulder (ICD-10 - M19.012) He is medically cleared for surgery on the left shoulder on January 24, 2025. 01/02/2025 Peyronie's disease (ICD-10 - N48.6) This is being treated by the urologist. He says that has improved. 01/02/2025 Gastro-esophageal reflux disease without esophagitis (ICD-10 - K21.9) The esophageal reflux is well controlled with qprv-xsg-fnstoox medications. 01/02/2025 Hyperlipidemia (ICD-10 - E78.5) A fasting lipid profile is pending. We will discuss results over the telephone when it is available. 01/02/2025 Former smoker (ICD-1 0 - Z87.891) He is motivated not to smoke. We discussed strategies for maintenance of abstinence in times of stress. Plan Of Treatment Medication Medication Name Sig Start Date Stop Date Notes methylPREDNISolone 4 MG Oral Tadalafil 20 MG 1 tablet as needed O rally Once a day 11/10/2024 EpiPen 2-Shiv 0.3 MG/0.3ML as directed In jection inject as needed for allergic reaction Pantoprazole Sodium 40 MG TAKE 1 TABLET BY MOUTH TWICE DAILY Cyclobenzaprine HCl 10 MG 1 tablet Orall y three times a day 07/07/2024 Atorvastatin Calcium 40 MG TAKE 1 TABLET BY MOUTH EVERY DAY Pending Test Test Name Order Date ECG 12 lead EKG 01/02/2025 Next Appt Details Follow Up: 6 Weeks, Reason: ov Provider Name:Bruno Ho , 11/13/2025 11:00:00 AM, [address] [place] [address], [place] [address], [place], [address], Progress Notes * Fred LYNN SrDOB:12/1954 (69 yo M)Acc No.[id number]:01/02/2025 Patient: Deana BEATRIZSARAHFred Sr Provider: Promise Ho MD :1955 A ge:69 Y S ex:Male Date:01/02/2025 Address:[address] [place], [place] [id number] Subjective: * Chief Complaints: * M edical clearance for Left shoulder surgery on 01/24/[address] Strong,Rupture of extensor tendonsRotator cuff tearBone spurs left shoulderSubluxation of biceps muscleBenign prostatic hypertrophyCervical radiculopathy * HPI: C OVID-19 Screening: He is going to have a day stay orthopedic surgery on his left shoulder on January 24, 2025 in the [facility]. He is here today for medical clearance. He reports no difficulty breathing and has had no exertional chest pain. He has no history of bleeding. He has undergone surgery on his neck in the past without complications. He has no history of significant allergies to anesthesia. I have examined him carefully today and taken a careful history. I found no contraindication to the planned surgery or anesthesia. He is given medical clearance for Gen. anesthesia for orthopedic surgery on January 24, 2025 without conditions. The risk is small and the benefit is great. He should do well. He is leaving for [place] for a week's vacation tomorrow. He will return in 1 week and at that time he will have preoperative blood work and an EKG. Those results obviously are not available today but will be reviewed. Questions H ave you had any new onset fever, chills, cough, congestion, sore throat, shortness of breath, muscle aches? N o * ROS: G eneral/Constitutional: pain o nly normal aches and pains. C hills d enies.?Fatigue a dmits. F ever d enies. E NT: Decreased hearing d enies. R espiratory: Cough d enies. C ardiovascular: Chest pain with exertion d [...] Muscle aches d enies. P ainful joints l eft shoulder for 3 years. S ciatica d enies. W eakness d enies. S kin: Itching d enies. R kaveh d enies. S kin lesion(s)?denies. N eurologic: Difficulty speaking d enies. D izziness d enies.?Headache d enies. L ow back pain d enies. P sychiatric: Depressed mood d enies. * Medical History: * Surgical History: r otator cuff tear repair - left [id number] discectomy with anterior fusion houlder surgery scheduled [...] Social History: T obacco Use: T obacco Control (Standard) T obacco use: F ormer smoker Jadon ow long has it been since you last smoked??Greater than 10 years A dditional Findings: Tobacco non-user E x-cigarette smoker Jadon kothari was born in [place]. 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 He is now with the [employer]. * Medications: T akingAtorvastatin Calcium 40 MG Tablet TAKE 1 TABLET BY MOUTH EVERY DAY EpiPen 2-Shiv 0.3 MG/0.3ML Solution Auto-injector as directed Injection inject as needed for allergic reaction Pantoprazole Sodium 40 MG Tablet Delayed Release TAKE 1 TABLET BY MOUTH TWICE DAILY Cyclobenzaprine HCl 10 MG Tablet 1 tablet Orally three times a day methylPREDNISolone 4 MG Tablet Therapy Pack Oral Tadalafil 20 MG Tablet 1 tablet as needed Orally Once a day , stop date 04/03/2025Medication List reviewed and reconciled with the patientTaking Atorvastatin Calcium 40 MG Tablet TAKE 1 TABLET BY MOUTH EVERY DAY Taking EpiPen 2-Shiv 0.3 MG/0.3ML Solution Auto-injector as directed Injection inject as needed for allergic reaction Taking Pantoprazole Sodium 40 MG Tablet Delayed Release TAKE 1 TABLET BY MOUTH TWICE DAILY Taking Cyclobenzaprine HCl 10 MG Tablet 1 tablet Orally three times a day Taking methylPREDNISolone 4 MG Tablet Therapy Pack Oral Taking Tadalafil 20 MG Tablet 1 tablet as needed Orally Once a day , stop date 04/03/2025Medication List reviewed and reconciled with the patient * Allergies: Rose Posada[Allergies Verified] Objective: * Vitals: H t: 67, Wt:155, BMI:24.27, BP:134/79, HR:69, Temp:97.2, Oxygen sat %:98, Ht-cm: 170.18, Wt-k.31. * P ast Orders: Lab:URINE DIP STICK * Collection Date 11/10/2024 [...] Negative -) Negative Menstrating NR N/A NA ???Imaging:XR chest 2V (Order Date - 10/16/2024) (Performed Date - 10/16/2024) * Examination: G eneral Examination: GENERAL APPEARANCE: p leasant, well nourished, well developed, in no acute distress, calm and relaxed, man. HEAD: a traumatic, normocephalic. EYES: e debby, perrla, anicteric, conjugate. EARS: n ormal. NOSE: s eptum intact. ORAL CAVITY: n ormal, unremarkable. NECK/THYROID: n o jugular venous distention, no carotid bruit, thyroid normal, Mild decreased range of motion of neck. LYMPH NODES: n o enlarged lymph nodes,spleen normal. SKIN: n o suspicious lesions, anicteric. HEART: n o clicks, gallops, murmurs, or rubs, regular rhythm, S1, S2 normal, no s3, or vascular bruits. LUNGS: c lear to auscultation . BREASTS: no masses palpable bilaterally. ABDOMEN: b owel sounds normal, no ascites, no organomegaly, no mass. RECTAL EXAM: n ot examined. MUSCULOSKELETAL: e xtremities unremarkable, no clubbing, cyanosis or edema. PERIPHERAL PULSES: n ormal, Extremities warm and pink and dry, carotid arteries without bruits good pulses present.. NEUROLOGIC: a lert and oriented, cranial nerves 2-12 grossly intact, deep tendon reflexes 2+ symmetrical, motor strength normal upper and lower extremities, sensory exam intact. PSYCH: a lert, oriented, cognitive function intact, thought process logical, goal directed, speech clear, mood/affect full range, judgement and insight good, good eye contact. Assessment: * Assessment: 1. A rthritis of left shoulder - M19.012 (Primary) N otes :He is medically cleared for surgery on the left shoulder on January 24, 2025. 2 . B enign prostatic hyperplasia with lower urinary tract symptoms - N40.1? Notes :His prostatism is stable with nocturia once a night. No change in his regimen was needed at this time. We discussed lifestyle modification as a means to control nocturia. 3 . P eyronie's disease - N48.6 N otes :This is being treated by the urologist. He says that has improved. 4 . G gris-esophageal reflux disease without esophagitis - K21.9 ?Notes :The esophageal reflux is well controlled with tbsq-qsz-nvyewbc medications. 5 . H yperlipidemia - E78.5 N otes :A fasting lipid profile is pending. We will discuss results over the telephone when it is available. 6 . F ormer smoker - Z87.891 N otes :He is motivated not to smoke. We discussed strategies for maintenance of abstinence in times of stress. Plan: * Treatment: 2. H yperlipidemia L AB: PROFILE, FASTING (COMPREHENSIVE METABOLIC) L AB: PSA, TOTAL L AB: CBC WITH AUTO DIFF L AB: Lipid Panel 3. O thers Continue Atorvastatin Calcium Tablet, [...] methylPREDNISolone Tablet Therapy Pack, 4 MG, Oral; C ontinue Tadalafil Tablet, 20 MG, 1 tablet as needed, Orally, Once a day. * Imaging: * I maging: ECG 12 lead EKG * Procedure Codes: 9 4760 MEASURE BLOOD OXYGEN LEVEL * Preventive Medicine: Counseling: S moking/Tobacco Use Patient counseled on the dangers of tobacco use and urged to quit. 0 01/02/2025 * Follow Up: 6 Weeks (Reason: ov) * Images: * Sign off status: Completed true * Provider: Promise Ho MD Date: 0 01/02/2025 Generated for Lizi ng/Rejig/eTransmitting on: 1 06:12 PM EDT History and Physical Notes * HPI (History of Present Illness) Category Sub-Category Detail Notes COVID-19 Screening Questions Have you had any new onset fever, chills, cough, congestion, sore throat, shortness of breath, muscle aches?: No Examination Category Sub-Category Detail Notes General Examination GENERAL APPEARANCE: pleasant , well nourished, well developed, in no acute distress, calm and relaxed, man HEAD: atraumatic, normocep halic EYES: eomi, perrla, anicte arturo, conjugate EARS: normal NOSE: septum intact NECK/THYROID: no jugular venous di stention, no carotid bruit, thyroid normal, Mild decreased range of motion of neck HEART: no clicks, gallops, murmurs, or rubs, regular rhythm, S1, S2 normal, no s3, or vascular bruits LUNGS: clear to auscultatio n ABDOMEN: bowel sounds normal, no ascites, no organomegaly, no mass NEUROLOGIC: alert and oriented, cranial nerves 2-12 grossly intact, deep tendon reflexes 2+ symmetrical, motor strength normal upper and lower extremities, sensory exam intact SKIN: no suspicious lesion s, anicteric PERIPHERAL PULSES: normal, Extremities warm and pink and dry, carotid arteries without bruits good pulses present. BREASTS: no masses palpable b ilaterally MUSCULOSKELETAL: extremities unremark able, no clubbing, cyanosis or edema LYMPH NODES: no enlarged lymph no johnny,spleen normal RECTAL EXAM: not examined PSYCH: alert, oriented, cog nitive function intact, thought process logical, goal directed, speech clear, mood/affect full range, judgement and insight good, good eye contact ORAL CAVITY: normal, unremarkable
--- OUTSIDE RECORDS SUMMARY | 2025-01-19 06:45 | XMS_ITS ---
Author Organization Bruno Ho III, MD Address [address] [place] [address] [place] [address] Care Team Providers Care Drill Punch Operator Name Role Phone Dr. Bruno Ho III Primary Care Provider REASON FOR VISIT Needs call back from office Social History Sex Assigned At : Social History Observation Description Sex Assigned At Male Encounters Encounter Location Date Provider Diagnosis Bruno Ho III, MD [address] [place] [address] [place] [address] 01/19/2025 Bruno Ho Plan Of Treatment Next Appt Details Provider Name:Bruno Ho , 11/13/2025 11:00:00 AM, [address] [place] [address] [place], [address], Progress Notes * Fred LYNN SrDOB:12/1954 (69 yo M)Acc No.[id number]:01/19/2025 Patient: Fred DENNEY Sr :1955 A ge:69 Y S ex:Male Address:[address] [place], [place] [address] [address] * true * Date: Generated for Printi ng/Faxing/eTransmitting on: 06:11 PM EDT
--- OUTSIDE RECORDS SUMMARY | 2025-03-15 07:47 | XMS_ITS ---
Author Organization Bruon Ho III, MD Address [address] [place] [address] [place] [address] Care Team Providers Care Tar And Ammonia Pump Operator Name Role Phone Dr. Bruno Ho III Primary Care Provider [phone] REASON FOR VISIT Rx Request Medications Medication SIG (Take, Route, Frequency, Duration) Notes Start Date End Date Status EpiPen 2-Shiv 0.3 MG/0.3ML as directed Injection for allergic reaction for 30 days As needed Active Social History Sex Assigned At : Social History Observation Description Sex Assigned At Male Encounters Encounter Location Date Provider Diagnosis Bruno Ho III, MD [address] [place] [address] [place] [address] 03/15/2025 Bruno Ho Plan Of Treatment Medication Medication Name Sig Start Date Stop Date Notes EpiPen 2-Shiv 0.3 MG/0.3ML as directed In jection for allergic reaction for 30 days Next Appt Details Provider Name:Bruno Ho , 11/13/2025 11:00:00 AM, [address] [place] [address] [place], [address], Progress Notes * Fred LYNN SrDOB:12/1954 (69 yo M)Acc No.[id number]:03/15/2025 Patient: Deana BEATRIZSARAHFred Sr :1955 A ge:69 Y S ex:Male Address:[address] [place], [place] [address] [address] * Refills Refill EpiPen 2-Shiv Solution Auto-injector, 0.3 MG/0.3ML, Injection, 1 Pack, as directed, for allergic reaction, 30 days, Refills=11 * true * Date: Generated for Dionte canales/Rob/Christiane on: 1 06:12 PM EDT
--- OUTSIDE RECORDS SUMMARY | 2025-05-23 07:38 | XMS_ITS ---
Author Organization Bruno Ho III, MD Address [address] [place] [address] [place] [address] Care Team Providers Care Banana Room Cutter Name Role Phone Dr. Bruno Ho III Primary Care Provider REASON FOR VISIT Lab Request Social History Sex Assigned At : Social History Observation Description Sex Assigned At Male Encounters Encounter Location Date Provider Diagnosis Bruno Ho III, MD [address] [place] [address] [place] [address] 05/23/2025 Bruno Ho Hyperlipidemia E78.5 ; Erectile dysfunction N52.9 and Overweight E66.3 Assessments Encounter Date Diagnosis (ICD Code) Assessment Notes Treat ment Notes Treatment Clinical Notes 05/23/2025 Hyperlipidemia (ICD-10 - E78.5) 05/23/2025 Erectile dysfunction (ICD-10 - N52.9) 05/23/2025 Overweight (ICD-10 - E66.3) Plan Of Treatment Pending Test Test Name Order Date PROFILE, FASTING (COMPREHENSIVE METABOLI C) 05/23/2025 PSA, TOTAL 05/23/2025 CBC w DIFF 05/23/2025 Lipid Panel 05/23/2025 Next Appt Details Provider Name:Bruno Ho , 11/13/2025 11:00:00 AM, [address] [place] [address] [place], [address], Progress Notes * Fred LYNN SrDOB:12/1954 (69 yo M)Acc No.[id number]:05/23/2025 Patient: Fred DENNEY Sr :1955 A ge:69 Y S ex:Male Address:[address] [place] [address] Subjective: * Chief Complaints: * L ab Request * Medical History: * Surgical History: * Hospitalization/Major Diagno stic Procedure: * Medications: Objective: * Vitals: * Physical Examination: Assessment: * Assessment: 1. H yperlipidemia - E78.5 2 . E rectile dysfunction - N52.9 ?3. O verweight - E66.3 Plan: * Treatment: 2. E rectile dysfunction L AB: PROFILE, FASTING (COMPREHENSIVE METABOLIC) L AB: PSA, TOTAL L AB: CBC w DIFF L AB: Lipid Panel 3. O verweight L AB: PROFILE, FASTING (COMPREHENSIVE METABOLIC) L AB: PSA, TOTAL L AB: CBC w DIFF L AB: Lipid Panel * Procedure Codes: * true * Date: Generated for Dionte canales/Rob/Christiane on: 06:10 PM EDT
--- OUTSIDE RECORDS SUMMARY | 2025-06-12 13:00 | XMS_ITS ---
Author Organization Bruno Ho III, MD Address [address] [place] [address] [place] [address] Care Team Providers Care Furnace Installer Helper Name Role Phone Dr. Bruno Ho III Primary Care Provider REASON FOR VISIT Follow up Social History Sex Assigned At : Social History Observation Description Sex Assigned At Male Encounters Encounter Location Date Provider Diagnosis Bruno Ho III, MD [address] [place] [address] [address] [place] [facility] [place] [address] 06/12/2025 Bruno Ho Plan Of Treatment Next Appt Details Provider Name:Bruno Ho , 11/13/2025 11:00:00 AM, [address] [place] [address] [place], [address], Progress Notes * Fred LYNN SrDOB:12/1954 (70 yo M)Acc No.[id number]:06/12/2025 Progress Notes Patient: Deana CEVALLOS Fred Walsh Sr Provider: Promise Ho MD :1955 A ge:69 Y S ex:Male Date:06/12/2025 Address:[address] [place], [place] [address], [id number] Subjective: * Chief Complaints: * 1 . Follow up. * Medical History: Objective: * Vitals: Assessment: Plan: * Treatment: * Images: * The named appointment provid er may or may not be the originator of this progress note, and it is not deemed complete until electronically signed by the appointment provider. Sign off status: Pending * Provider: Promise Ho MD Date: 0 06/12/2025 Generated for Dionte canales/Rob/Christiane on: 06:11 PM EDT
--- OUTSIDE RECORDS SUMMARY | 2025-06-19 10:30 | XMS_ITS ---
Author Organization Bruno Ho III, MD Address [address] [address] Care Team Providers Care Education Rn Name Role Phone Dr. Bruno Ho III Primary Care Provider Allergies Allergen (clinical drug ingredient) Drug/Non Drug Allergy documented on EMR Reaction Allergy Type Onset Date Status Bee Sting Unknown Allergy Active REASON FOR VISIT Hyperlipidemia, GERD, Benign prostatic hypertrophy, Cervical spondylosis, Arthritis left shoulder Medications Medication SIG (Take, Route, Frequency, Duration) Notes Start Date End Date Status Cyclobenzaprine HCl 10 MG 1 tablet Orall y three times a day 07/07/2024 Active Tadalafil 20 MG 1 tablet as needed O rally Once a day 11/10/2024 Active methylPREDNISolone 4 MG Oral Active Pantoprazole Sodium 40 MG TAKE 1 TABLET BY MOUTH TWICE DAILY Active EpiPen 2-Shiv 0.3 MG/0.3ML as directed Injection for allergic reaction As needed Active Atorvastatin Calcium 40 MG TAKE 1 [...] has it been since you last smoked? Melissa ter than 10 years Additional Findings: Tobacco non-user Ex-cigaret te smoker Vital Signs Temperature 97.4 degrees Fahrenheit 06/19/20 25 Blood pressure systolic 117 mm Hg 06/19/20 25 Blood pressure diastolic 80 mm Hg 025 Heart Rate 69 /min 06/19/2025 Height 67 in 06/19/2025 Weight 158 lbs 06/19/2025 BMI 24.74 kg/m2 06/19/2025 Encounters Encounter Location Date Provider Diagnosis Bruno Ho III, MD [address] [place] [address] [place] [id number] 06/19/2025 Bruno Ho Dysphagia R13.10 ; Gastro-esophageal reflux disease without esophagitis K21.9 ; Former smoker Z87.891 ; Peyronie's disease N48.6 and Arthritis of left shoulder M19.012 Assessments Encounter Date Diagnosis (ICD Code) Assessment Notes Treatment Notes Treatment Clinical Notes 06/19/2025 Dysphagia (ICD-10 - R13.10) He reports his complaint has resolved 06/19/2025 Gastro-esophageal reflux disease without esophagitis (ICD-10 - K21.9) The esophageal reflux is well controlled with yaih-bjk-emrgqfn medications. 06/19/2025 Former smoker (ICD-10 - Z87.891) He is motivated not to smoke. We discussed strategies for maintenance of abstinence in times of stress. 06/19/2025 Peyronie's disease (ICD-10 - N48.6) This is being treated by the urologist. He says that has improved. 06/19/2025 Arthritis of left shoulder (ICD-10 - M19.012) He is medically cleared for surgery on the left shoulder on January 24, 2025. Plan Of Treatment Medication Medication Name Sig Start Date Stop Date Notes Cyclobenzaprine HCl 10 MG 1 tablet Orall y three times a day 07/07/2024 Tadalafil 20 MG 1 tablet as needed O rally Once a day 11/10/2024 methylPREDNISolone 4 MG Oral Pantoprazole Sodium 40 MG TAKE 1 TABLET BY MOUTH TWICE DAILY EpiPen 2-Shiv 0.3 MG/0.3ML as directed In jection for allergic reaction Atorvastatin Calcium 40 MG TAKE 1 TABLET BY MOUTH EVERY DAY Pending Test Test Name Order Date PROFILE, FASTING (COMPREHENSIVE METABOLI C) 06/19/2025 PSA, TOTAL 06/19/2025 CBC w DIFF 06/19/2025 Lipid Panel 06/19/2025 Next Appt Details Follow Up: 3 Months, Reason: Office visit Provider Name:Bruno oH , 11/13/2025 11:00:00 AM, [address] [place] [address] [address], [place], [phone], Progress Notes * Fred LYNN SrDOB:12/1954 (69 yo M)Acc No.[id number]:06/19/2025 Progress Notes Patient: Fred DENNEY Sr Provider: Promise Ho MD :1955 A ge:69 Y S ex:Male Date:06/19/2025 Address:[address] [place] [address] [place], [id number] Subjective: * Chief Complaints: * H yperlipidemiaGERDBenign prostatic hypertrophyCervical spondylosisArthritis left shoulder * HPI: C OVID-19 Screening: . He returns for medical management. His main complaint today is pain in his neck with limitation of range of motion. He recently saw his 's orthopedist in [place] who told him he had osteoarthritis and gave him a muscle relaxer. He had surgery on his left shoulder 5 months ago. There is still pain with use but the shoulder has improved a great deal. He reports she has no nocturia. He is completing all of the activities of daily life without impairment. He has had no chest pain or dyspnea. His esophageal reflux as well controlled with medication. Questions H ave you had any new onset fever, chills, cough, congestion, sore throat, shortness of breath, muscle aches? N o * ROS: G eneral/Constitutional: pain N ryan, left shoulder. C hills d enies. F atigue a dmits. F ever d enies. E NT: Decreased hearing d enies. R espiratory: Cough d enies. C ardiovascular: Chest pain with exertion d enies. D yspnea on exertion?denies. S hortness of breath d enies. G astrointestinal: Constipation o ccasional. D ecreased appetite d enies. D iarrhea d enies. H eartburn c ontrolled with medications. N ausea d enies. R ectal bleeding d enies. V omiting d enies. H ematology: bruising d enies. p etechiae d enies. S wollen glands n one have been noted. G enitourinary: Frequent urination d enies. M usculoskeletal: Muscle aches d enies. P ainful joints N ryan and left shoulder. S ciatica d enies. W eakness d enies. S kin: Itching d enies. R kaveh d enies. S kin lesion(s)?denies. N eurologic: Difficulty speaking d enies. D izziness d enies.?Headache d enies. L ow back pain d enies. P sychiatric: Depressed mood d enies. * Medical History: * Surgical History: r otator cuff tear repair - left [id number] discectomy with anterior fusion houlder surgery scheduled [...] x-cigarette smoker Jadon kothari was born in [place]. 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 He is now with the [employer]. * Medications: T akingAtorvastatin Calcium 40 MG Tablet TAKE 1 TABLET BY MOUTH EVERY DAY Cyclobenzaprine HCl 10 MG Tablet 1 tablet Orally three times a day methylPREDNISolone 4 MG Tablet Therapy Pack Oral Tadalafil 20 MG Tablet 1 tablet as needed Orally Once a day Pantoprazole Sodium 40 MG Tablet Delayed Release TAKE 1 TABLET BY MOUTH TWICE DAILY EpiPen 2-Shiv 0.3 MG/0.3ML Solution Auto-injector as directed Injection for allergic reaction As neededMedication List reviewed and reconciled with the patientTaking Atorvastatin Calcium 40 MG Tablet TAKE 1 TABLET BY MOUTH EVERY DAY Taking Cyclobenzaprine HCl 10 MG Tablet 1 tablet Orally three times a day Taking methylPREDNISolone 4 MG Tablet Therapy Pack Oral Taking Tadalafil 20 MG Tablet 1 tablet as needed Orally Once a day Taking Pantoprazole Sodium 40 MG Tablet Delayed Release TAKE 1 TABLET BY MOUTH TWICE DAILY Taking EpiPen 2-Shiv 0.3 MG/0.3ML Solution Auto-injector as directed Injection for allergic reaction As neededMedication List reviewed and reconciled with the patient * Allergies: B cinda Posada[Allergies Verified] Objective: * Vitals: H t: 67, Wt:158, BMI:24.74, BP:117/80, HR:69, Temp:97.4, Ht-cm: 170.18, Wt-k.67. * Examination: G eneral Examination: GENERAL APPEARANCE: p leasant, well nourished, well developed, in no acute distress, calm and relaxed: man. HEAD: a traumatic, normocephalic. EYES: e debby, perrla, anicteric, conjugate. EARS: n ormal. NOSE: s eptum intact. ORAL CAVITY: n ormal, unremarkable. NECK/THYROID: n o jugular venous distention, no carotid bruit, thyroid normal, Decreased range of motion of the neck in all directions. LYMPH NODES: n o enlarged lymph nodes,spleen [...] xtremities unremarkable, no clubbing, cyanosis or edema, Good range of motion left shoulder, small healing incision. PERIPHERAL PULSES: n ormal. NEUROLOGIC: a lert and oriented, cranial nerves 2-12 grossly intact, deep tendon reflexes 2+ symmetrical, motor strength normal upper and lower extremities, sensory exam intact. PSYCH: a lert, oriented: thought process logical, goal directed: cognitive function intact. Assessment: * Assessment: 1. G gris-esophageal reflux disease without esophagitis - K21.9 (Primary) N otes :The esophageal reflux is well controlled with lckv-odr-qrhypkp medications. 2 . D ysphagia - R13.10 N otes :He reports his complaint has resolved 3 . F ormer smoker - Z87.891 N otes :He is motivated not to smoke. We discussed strategies for maintenance of abstinence in times of stress. 4 . P eyronie's disease - N48.6 N otes :This is being treated by the urologist. He says that has improved. 5 . A rthritis of left shoulder - M19.012 N otes :He is medically cleared for surgery on the left shoulder on January 24, 2025. Plan: * Treatment: 2. O thers Continue EpiPen 2-Shiv Solution Auto-injector, 0.3 MG/0.3ML, as directed, Injection, for allergic reaction As needed; C ontinue Pantoprazole Sodium Tablet Delayed Release, 40 MG, TAKE 1 TABLET BY MOUTH TWICE DAILY; C ontinue Atorvastatin Calcium Tablet, 40 MG, TAKE 1 TABLET BY MOUTH EVERY DAY; C ontinue Cyclobenzaprine HCl Tablet, 10 MG, 1 tablet, Orally, three times a day; C ontinue methylPREDNISolone Tablet Therapy Pack, 4 MG, Oral; C ontinue Tadalafil Tablet, 20 MG, 1 tablet as needed, Orally, Once a day. * Labs: * L ab: PROFILE, FASTING (COMPREHENSIVE METABOLIC) L ab: PSA, TOTAL L ab: CBC w DIFF L ab: Lipid Panel * Procedure Codes: * Preventive Medicine: Counseling: S moking/Tobacco Use Patient counseled on the dangers of tobacco use and urged to quit. 0 06/19/2025 * Follow Up: 3 Months (Reason: Office visit) * Images: * Sign off status: Completed true * Provider: Promise Ho MD Date: 0 06/19/2025 Generated for Dionte canales/Rob/Riveraitting on: 1 06:11 PM EDT History and Physical Notes * HPI (History of Present Illness) Category Sub-Category Detail Notes COVID-19 Screening Questions Have you had any new onset fever, chills, cough, congestion, sore throat, shortness of breath, muscle aches?: No Examination Category Sub-Category Detail Notes General Examination GENERAL APPEARANCE: pleasant , well nourished, well developed, in no acute distress, calm and relaxed: man HEAD: atraumatic, normocep halic EYES: eomi, perrla, anicte arturo, conjugate EARS: normal NOSE: septum intact NECK/THYROID: no jugular venous di stention, no carotid bruit, thyroid normal, Decreased range of motion of the neck in all directions HEART: no clicks, gallops, murmurs, or rubs, [...] unremark able, no clubbing, cyanosis or edema, Good range of motion left shoulder, small healing incision LYMPH NODES: no enlarged lymph no johnny,spleen normal RECTAL EXAM: not examined PSYCH: alert, oriented: tho ught process logical, goal directed: cognitive function intact ORAL CAVITY: normal, unremarkable
--- OUTSIDE RECORDS SUMMARY | 2025-08-30 09:31 | XMS_ITS ---
Author Organization Bruno Ho III, MD Address [address] [place] [address] [address] [place] [address] Care Team Providers Care School Psychologist Assistant Name Role Phone Dr. Bruno Ho III Primary Care Provider [phone] REASON FOR VISIT Needs call back from Social History Sex Assigned At : Social History Observation Description Sex Assigned At Male Encounters Encounter Location Date Provider Diagnosis Bruno Ho III, MD [address] [place] [address] [place] [address] 08/30/2025 Bruno Ho Plan Of Treatment Next Appt Details Provider Name:Bruno Ho , 11/13/2025 11:00:00 AM, [address] [place] [address] [place], [phone], Progress Notes * Fred LYNN SrDOB:12/1954 (70 yo M)Acc No.[id number]:08/30/2025 Patient: Fred DENNEY Sr :1955 A ge:70 Y S ex:Male Address:[address] [place], [place] [address] [address] * true * Date: Generated for Lizi ng/Faxing/eTransmitting on: 06:10 PM EDT
--- OUTSIDE RECORDS SUMMARY | 2025-08-30 10:17 | XMS_ITS ---
Author Organization Bruno Ho III, MD Address [address] [place] [address] [place] [phone] Care Team Providers Care Rock Breaker Name Role Phone Dr. Bruno Ho III Primary Care Provider [phone] Social History Sex Assigned At : Social History Observation Description Sex Assigned At Male Encounters Encounter Location Date Provider Diagnosis Bruno Ho III, MD [address] [place] [address] [place] [phone] 08/30/2025 Bruno Ho Chronic cough R05.3 Assessments Encounter Date Diagnosis (ICD Code) Assessment Notes Treatment Notes Treatment Clinical Notes 08/30/2025 Chronic cough (ICD-10 - R05.3) Plan Of Treatment Next Appt Details Provider Name:Bruno Ho , 11/13/2025 11:00:00 AM, [address] [place] [address] [place], [phone], Progress Notes * Fred LYNN SrDOB:12/1954 (70 yo M)Acc No.[id number]:08/30/2025 Patient: Deana CEVALLOSFred Sr :1955 A ge:70 Y S ex:Male Address:[address] [place] [id number] Subjective: * Chief Complaints: * * Medical History: * Surgical History: * Hospitalization/Major Diagno stic Procedure: * Medications: Objective: * Vitals: * Physical Examination: Assessment: * Assessment: 1. C hronic cough - R05.3 Plan: * Treatment: * Procedure Codes: * true * Date: Generated for Dionte canales/Rob/Christiane on: 06:11 PM EDT
--- NOTE | ~2025-09-04 | XR_ITS ---
EXAMINATION: XR CHEST CLINICAL INFORMATION: CHRONIC COUGH COMPARISON: Previous chest x-ray October 2024 TECHNIQUE: 2 views of the chest were obtained. FINDINGS: Cardiac and mediastinal contours are stable. The lungs are clear. No pleural effusion or pneumothorax. Mild degenerative changes of the thoracic spine. XR/XR chest 2V IMPRESSION: No evidence for acute disease in the chest. Electronically signed by: Britta Peña MD 09/04/2025 02:07 PM EDT
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
--- OUTSIDE RECORDS SUMMARY | 2025-09-04 18:12 | XMS_ITS | Clinical Summary ---
Author Organization [address] Address [address] [place] [phone] Phone Care Team Providers Care Railway Shunter Name Role Phone Bruno Ho MD Primary Care Provider [phone] Allergies No known active allergies Social History [...] 65 - 110 mg/dL 06/01/2022 5:03 PM [facility] Comment: Non-fastin-110 mg/dL Fasting (minimum 6 hrs): 65-99 mg/dL BUN 11 7 - 18 mg/dL 06/01/2022 5:03 PM [facility] Creatinine 0.74 0.70 - 1.30 mg/dL 06/01/2022 5:03 PM [facility] eGFR (-NICARAGUAN) >60 >60 mL/min/1.7 3m2 06/01/2022 5:03 PM [facility] eGFR (NON -Namibian) >60 >60 mL/min/1.7 3m2 06/01/2022 5:03 PM [facility] Comment: (NOTE) These are estimated GFR values [...] 136 - 145 mmol/L 06/01/2022 5:03 PM [facility] Potassium 3.7 3.5 - 5.1 mmol/L 06/01/2022 5:03 PM EDT [facility] Chloride 107 98 - 107 mmol/L 06/01/2022 5:03 PM EDT [facility] CO2 29 21 - 32 mmol/L 06/01/2022 5:03 PM EDT [facility] Anion Gap 5 5 - 15 mmol/L 06/01/2022 5:03 PM EDT [facility] Calcium 9.3 8.5 - 10.1 mg/dL 06/01/2022 5:03 PM EDT [facility] Blood Venipuncture / Unknown 06/01/2022 4:28 PM EDT 06/01/2022 4:37 PM EDT Aris Barrera MD LAB BLOOD ORDERABLES Final Res ult [address] [phone] from Last 3 Months or Most Recently Relevant to Health Maintenance [facility] [employer] [facility] on file Care Teams Railway Shunter Relationship Specialty Start Date End Date Bruno Ho MD PCP - General Medical Oncology 06/01/22
== END 2025-09-04 13:52 | disposition home or self-care (01) ==
LOC: HO.XRAY 13:51
PROVIDERS: PCP Internal Medicine Medical Oncology; Visit Provider Internal Medicine Medical Oncology
DX: R05.3 Chronic cough (principal)
CPT/HCPCS: 71046

== ENCOUNTER → 2025-09-04 14:02 | Outpatient (BNV) | payer OTHER, SELFPAY | PROVIDERS: PCP Internal Medicine Medical Oncology; Visit Provider Radiology Diagnostic Radiology | DX: R05.3 Chronic cough (principal) | CPT/HCPCS: 71046 ==